=== PATIENT | female | born 1940 | race Caucasian/White ===

== ENCOUNTER 2017-05-20 10:59 | Inpatient (IN) | payer MEDICARE ==
[2017-05-20] VITALS (15 sets, daily range): BP systolic 107–199; BP diastolic 47–94; PULSE 73–124; RESP 16–30; TEMP 98.3–99; O2SAT 96–100
[~2017-05-20] VITALS: Ht 157.5 cm; Wt 64.9 kg
[~2017-05-20 10:59] MED LIST: AMLO5TAB22 PO; BIOT10004 PO; CALTTAB PO; LACTCAP7 PO; LISI-363 PO; METO50CR PO; MULT-65 PO
[2017-05-20 11:25] LABS: AUTOMATED NEUTROPHIL # 4.6 TH/MM3 (1.8-7.7); BASOPHIL # 0.1 TH/MM3 (0-0.2); BASOPHIL % 1.1 % (0.0-2.0); EOSINOPHIL # 0.1 TH/MM3 (0-0.4); HEMATOCRIT 39.9 % (35.0-46.0); HEMOGLOBIN 13.6 GM/DL (11.6-15.3); LYMPH % 35.1 % (9.0-44.0); MEAN CELL VOLUME 92.2 FL (80.0-100.0); MEAN CORPUSCULAR HEMOGLOBIN 31.5 PG (27.0-34.0); MEAN CORPUSCULAR HGB CONC 34.2 % (32.0-36.0); MEAN PLATELET VOLUME 8.7 FL (7.0-11.0); MONO % 8.6 % (0.0-8.0); MONOCYTE # 0.7 TH/MM3 (0-0.9); NEUT % 54.2 % (16.0-70.0); PLATELET COUNT 241 TH/MM3 (150-450); RED BLOOD COUNT 4.33 MIL/MM3 (4.00-5.30); WHITE BLOOD COUNT 8.5 TH/MM3 (4.0-11.0)
[2017-05-20] MEDS ORDERED: MISCELLANEOUS NURSING INFORMATION XX PRN (11:30)
[2017-05-20] MEDS ORDERED: ALTEPLASE DRIP IV ONE (11:30)
[2017-05-20] MEDS ORDERED: SODIUM CHLORIDE 0.9% 50 ML BAG IVF ONE (11:30)
[2017-05-20] MEDS ORDERED: ALTEPLASE BOLUS 9 MG/9 ML SYR IV ONE (11:30)
[2017-05-20 11:40] LABS: CHLORIDE 101 MEQ/L (98-107); SODIUM (NA) 133 MEQ/L (136-145)
[2017-05-20 11:43] LABS: CALCIUM 9.1 MG/DL (8.5-10.1)
[2017-05-20 11:44] LABS: BICARBONATE 23.1 MEQ/L (21.0-32.0); BLOOD UREA NITROGEN 15 MG/DL (7-18); GLUCOSE,RANDOM 97 MG/DL (74-106)
[2017-05-20 11:47] LABS: CREATININE 0.87 MG/DL (0.50-1.00); GLOMERULAR FILTRATION RATE 63 ML/MIN (>89)
[2017-05-20 11:52] LABS: TROPONIN I LESS THAN 0.02 NG/ML (0.02-0.05)
--- NOTE | 2017-05-20 12:01 | PD ---
HPI Chief Complaint: Stroke Alert Time Seen by Provider: 11:06 Travel History International Travel<30 days: No Contact w/Intl Traveler<30days: No Traveled to known affect area: No History of Present Illness HPI Patient is a 77-year-old female with history of hypertension, hyperlipidemia, who presents the emergency room for neuro symptoms. As per patient's , they were getting ready to go the gym, reports that when they arrived at the gym , patient reported that she wanted to go home as she was not feeling well. Patient has been reported that patient was not acting like her normal self, he brought her directly to the emergency room. Patient with no recent histories of any surgeries, no history of CVA in the past. Patient is currently not on any blood thinners or aspirin. Patient is having aphasia at this time, she is unable to provide in HPI. PFSH Past Medical History Arthritis: Yes Asthma: No Anxiety: No Depression: No Heart Rhythm Problems: No Cancer: No Cardiovascular Problems: No High Cholesterol: No Chemotherapy: No Chest Pain: No Congestive Heart Failure: No COPD: No Cerebrovascular Accident: No Diabetes: No Diminished Hearing: No Endocrine: Yes GERD: No Glaucoma: No Genitourinary: No Headaches: Yes Hepatitis: No Hiatal Hernia: Yes Hypertension: Yes Immune Disorder: No Kidney Stones: No Musculoskeletal: Yes (ARTHRITIS, OSTEOPENIA) Neurologic: No Psychiatric: No Reproductive: No Respiratory: No Immunizations Current: Yes Migraines: No Radiation Therapy: No Renal Failure: No Sickle Cell Disease: No Sleep Apnea: No Thyroid Disease: Yes (GOITER REM'D) Ulcer: No Menopausal: Yes : 2 Para: 2 Past Surgical History Abdominal Surgery: Yes (APPY60, LAP ASHLEY) AICD: No Appendectomy: Yes Arteriovenous Shunt: No Body Medical Devices: LEFT KNEE HARDWARE Cardiac Surgery: No Cholecystectomy: Yes Ear Surgery: No Endocrine Surgery: Yes (PARTIAL THYROIDECTOMY) Eye Surgery: No Genitourinary Surgery: No Gynecologic Surgery: No Insulin Pump: No Joint Replacement: No Neurologic Surgery: No Oral Surgery: No Pacemaker: No Other Surgery: Yes (TEMPORAL ARTERY BIOPSY) Social History Alcohol Use: Yes (WINE HS) Tobacco Use: No (QUIT) Substance Use: No Allergies-Medications (Allergen,Severity, Reaction): Coded Allergies: No Known Allergies (Verified Allergy, Unknown, 05/20/17) Reported Meds & Prescriptions Reported Meds & Active Scripts Active Reported Probiotic (Lactobacillus Acidophilus) 10 Billion Cell Cap 1 Cap PO DAILY Glucosamine-Chondroitin 500-400 Mg Tab 1 Tab PO DAILY Multivitamins (Multiple Vitamin) 1 Cap Cap 1 Cap PO HS Metoprolol Succinate ER 24 HR (Metoprolol Succinate) 50 Mg Tab 50 Mg PO HS Lisinopril 20 Mg Tab 20 Mg PO BID Fish Oil 1000 mg ([facility]-3 Fatty Acids) 300 Mg-1,000 Mg Cap 1,000 Mg PO HS Amlodipine (Amlodipine Besylate) 5 Mg Tab 5 Mg PO HS Review of Systems ROS Limitations: Speech Impaired, Other: (aphasic) General / Constitutional: No: Fever Eyes: No: Visual changes HENT: Positive: Headaches Cardiovascular: No: Chest Pain or Discomfort Respiratory: No: Shortness of Breath Gastrointestinal: No: Abdominal Pain Genitourinary: No: Dysuria Musculoskeletal: No: Pain Skin: No Rash Neurologic: Positive: Slurred Speech, Other (Aphasia), No: Weakness, Ataxia Psychiatric: No: Depression Endocrine: No: Polydipsia Hematologic/Lymphatic: No: Easy Bruising Physical Exam Narrative GENERAL: moderate distress SKIN: Focused skin assessment warm/dry. HEAD: Atraumatic. Normocephalic. EYES: Pupils equal and round. No scleral icterus. No injection or drainage. ENT: No nasal bleeding or discharge. Mucous membranes pink and moist. NECK: Trachea midline. No JVD. CARDIOVASCULAR: Regular rate and rhythm. No murmur appreciated. RESPIRATORY: No accessory muscle use. Clear to auscultation. Breath sounds equal bilaterally. GASTROINTESTINAL: Abdomen soft, non-tender, nondistended. Hepatic and splenic margins not palpable. MUSCULOSKELETAL: No obvious deformities. No clubbing. No cyanosis. No edema. NEUROLOGICAL: Awake and alert. . Motor grossly within normal limits. NIH scale 4 - patient with moderate aphasia Data Data Last Documented VS Vital Signs Date Time Temp Pulse Resp B/P (MAP) Pulse Ox O2 Delivery O2 Flow Rate FiO2 05/20/17 12:21 72 171/84 05/20/17 11:30 30 100 Room Air 05/20/17 11:[address] Brain W/O Iv Contrast(Rout) (05/20/17 ) Cath For Specimen (05/20/17 11:08) Prothrombin Time / Inr (Pt) (05/20/17 11:08) Act Partial Throm Time (Ptt) (05/20/17 11:08) Complete Blood Count With Diff (05/20/17 11:08) Basic Metabolic Panel (Bmp) (05/20/17 11:08) Fibrinogen (05/20/17 11:08) Creatine Kinase (Cpk) (05/20/17 11:08) Troponin I (05/20/17 11:08) Ua Includes Microscopic (05/20/17 11:08) Type And Screen (05/20/17 11:08) Chest, Single Ap (05/20/17 ) Electrocardiogram (05/20/17 ) Consult Neurology (05/20/17 11:08) Blood Glucose (05/20/17 11:08) Ecg Monitoring (05/20/17 11:08) Iv Access Insert/Monitor (05/20/17 11:08) NPO (05/20/17 11:08) Oximetry (05/20/17 11:08) Resp Oxygen Nc Stroke (05/20/17 ) Nicardipine Inj (Cardene Inj) (05/20/17 11:15) (Hub Use Only)Inp Phy Cons/Ref (05/20/17 ) ^ Call Pharmacy (05/20/17 11:18) Nih Stroke Scale - Nihss .ONCE (05/20/17 11:18) Urinary Catheter Insert/Apply (05/20/17 11:18) Anticoagulant Alert (05/20/17 11:18) ^ Post Infusion Restrictions (05/20/17 11:18) ^ Medication Alert (05/20/17 11:18) Vital Signs (Adult) .As directed (05/20/17 11:18) Notify Dr: Blood Pressure (05/20/17 11:18) ^ Medication Alert (05/20/17 11:18) Sodium Chloride 0.9% Inj (Ns Inj) (05/20/17 11:30) Misc Nursing Information (05/20/17 11:30) Resp Oxygen Nc Stroke (05/20/17 ) Alteplase Bolus (Activase Bolus) (05/20/17 11:30) Alteplase Drip (Activase Drip) (05/20/17 11:30) Mri Brain W&W/O Contrast (05/20/17 ) Mra Brain W/O Contrast (Cow) (05/20/17 ) Scd Bilateral/Knee High JOSH.QSHIFT (05/20/17 12:00) Lipid Profile (05/20/17 12:00) Us Carotid Arteries Comp Bilat (05/20/17 ) Echo 2d Comp With Doppler (05/20/17 ) Admit Order (Ed Use Only) (05/20/17 12:40) Labs Laboratory Tests Test 05/20/17 11:17 White Blood Count 8.5 TH/MM3 Red Blood Count 4.33 MIL/MM3 Hemoglobin 13.6 GM/DL Hematocrit 39.9 % Mean Corpuscular Volume 92.2 FL Mean Corpuscular Hemoglobin 31.5 PG Mean Corpuscular Hemoglobin Concent 34.2 % Red Cell Distribution Width 12.0 % Platelet Count 241 TH/MM3 Mean Platelet Volume 8.7 FL Neutrophils (%) (Auto) 54.2 % Lymphocytes (%) (Auto) 35.1 % Monocytes (%) (Auto) 8.6 % Eosinophils (%) (Auto) 1.0 % Basophils (%) (Auto) 1.1 % Neutrophils # (Auto) 4.6 TH/MM3 Lymphocytes # (Auto) 3.0 TH/MM3 Monocytes # (Auto) 0.7 TH/MM3 Eosinophils # (Auto) 0.1 TH/MM3 Basophils # (Auto) 0.1 TH/MM3 CBC Comment DIFF FINAL Differential Comment Prothrombin Time 10.0 SEC Prothromb Time International Ratio 1.0 RATIO Activated Partial Thromboplast Time 25.0 SEC Fibrinogen 306 mg/dL Blood Urea Nitrogen 15 MG/DL Creatinine 0.87 MG/DL Random Glucose 97 MG/DL Calcium Level 9.1 MG/DL Sodium Level 133 MEQ/L Potassium Level 4.0 MEQ/L Chloride Level 101 MEQ/L Carbon Dioxide Level 23.1 MEQ/L Anion Gap 9 MEQ/L Estimat Glomerular Filtration Rate 63 ML/MIN Total Creatine Kinase 90 U/L Troponin I LESS THAN 0.02 NG/ML Triglycerides Level 114 MG/DL Cholesterol Level 213 MG/DL LDL Cholesterol 105 MG/DL HDL Cholesterol 85.0 MG/DL Cholesterol/HDL Ratio 2.50 RATIO [facility] Medical Screen Exam Complete: Yes Emergency Medical Condition: Yes Medical Record Reviewed: Yes Differential Diagnosis CVA, ICH Narrative Course 77-year-old female presents to emergency room with her for evaluation of neuro deficits. Patient with NIH scale of 4, patient with moderate aphasia. Onset of symptoms for about 10:30 AM this morning. Stroke alert was called upon arrival to the emergency room. Patient's glucose was 95, initial blood pressure was 199/94. Patient was brought immediately to CT for CT scan of her head. . Repeat blood pressure was 161/73. Case reviewed with Dr. Spicer, discussed with him patient's symptoms - if ct neg for ich, patient can receive TPA. Recommends keeping blood pressure less than 170/ 100. CT of head negative for intracranial hemorrhage. Case reviewed [facility] Dr. Castillo ( radiologist). Repeat bp was 161/73. Patient and daughter at bedside who consented for TPA as patient is unable to consent for TPA due to her aphasia. I did discuss case with patient's other daughter who is also agreeable for treatment with TPA. TPA was administered to patient. Dr. Spicer at bedside evaluating patient, plan to transfer patient to [facility] Case reviewed with Dr. Fu who accepts pt to service at [facility] Repeat neuro exam after TPA given - NIH 1 Patient's blood pressure did increase to 171/84 - cardene gtt started to keep blood pressure under 170/100 Critical Care Narrative Aggregate critical care time was 45 minutes. Time to perform other separately billable procedures was not included in the critical care time. My time did not include minutes spent treating any other patients simultaneously or on activities that did not directly contribute to the patient's treatment. The services I provided to this patient were to treat and/or prevent clinically significant deterioration that could result in: , DECOMPENSATION, DETERIORATION I provided critical care services requiring my management, as noted below: Chart data review, documentation time, medication orders and management, vital sign assessments/reviewing monitor data, ordering and reviewing lab tests, ordering and interpreting/reviewing x-rays and diagnostic studies, care of the patient and discussion of the patient with the admitting physicians. Stroke Alert NIHSS NIH Stroke Scale Result: 4 NIHSS Time Completed: 11:20 Physician Communication Physician Communication Case reviewed with DR. SPICER, neurologist Diagnosis Diagnosis: Primary Impression: CVA (cerebral vascular accident) Qualified Codes: I63.9 - Cerebral infarction, unspecified Admitting Physician Requests: Admit Keena Busby DO May 20, 2017 12:00
--- NOTE | 2017-05-20 12:08 | RADRPT ---
EXAM DATE/TIME: 05/20/2017 11:07 [facility] COMPARISON: No previous studies available for comparison. INDICATIONS : Stroke alert. Aphasia. RADIATION DOSE: 58.91 CTDIvol (mGy) This report was called by to Dr. Busby at 1200 MEDICAL HISTORY : None SURGICAL HISTORY : None. ENCOUNTER: Initial ACUITY: 1 day PAIN SCALE: 0/10 LOCATION: cranial TECHNIQUE: Multiple contiguous axial images were obtained of the head. Using automated exposure control and adj ustment of the mA and/or kV according to patient size, radiation dose was kept as low as reasonably a chievable to obtain optimal diagnostic quality images. DICOM format image data is available electro nically for review and comparison. FINDINGS: CEREBRUM: Moderate diffuse cerebral atrophy. The ventricles are normal for degree of atrophy. No evidence of m idline shift, mass lesion, hemorrhage or acute infarction. No extra-axial fluid collections are seen . POSTERIOR FOSSA: The cerebellum and brainstem are intact. The 4th ventricle is midline. The cerebellopontine angle i s unremarkable. EXTRACRANIAL: The visualized portion of the orbits is intact. SKULL: The calvaria is intact. No evidence of skull fracture. CONCLUSION: 1. No acute intracranial abnormality. Kuldeep Garcia MD on May 20, 2017 at 12:03 Board Certified Radiologist. This report was verified electronically.
--- NOTE | 2017-05-20 12:14 | RADRPT ---
EXAM DATE/TIME: 05/20/2017 11:44 [facility] COMPARISON: No previous studies available for comparison. INDICATIONS : Stroke Alert MEDICAL HISTORY : None. SURGICAL HISTORY : None. ENCOUNTER: Initial ACUITY: 1 day PAIN SCORE: Non-responsive. LOCATION: chest FINDINGS: A single view of the chest demonstrates the lungs to be symmetrically aerated without evidence of mas s, infiltrate or effusion. Mild compensated cardiomegaly. Osseous structures are intact. CONCLUSION: Mild complete cardiomegaly otherwise negative Axel An MD FACR on May 20, 2017 at 12:11 Board Certified Radiologist. This report was verified electronically.
[2017-05-20] MEDS: niCARdipine INJ 25 MG in SODIUM CHLOR 0.9% 250 ML INJ 240 ML IV PRN ×4 (12:21→18:31)
--- NOTE | 2017-05-20 12:31 | MB ---
cc: Theodore Spicer MD, PhD DATE: 05/20/2017 REASON FOR CONSULTATION: Stroke Alert. HISTORY OF PRESENT ILLNESS: Ms. Huynh is a very pleasant 77-year-old right-handed white female who was in her usual state of good health until around 10:30 this morning when she suddenly developed difficulty with language skills, trouble getting words out. She had no focal weakness or numbness. She presented to the [place] [facility] as a Stroke Alert. She was noted to have difficulty with comprehension and trouble with word finding ability. PAST MEDICAL HISTORY: She has a history of hypertension. MEDICATIONS AT HOME: Beta saniya, lisinopril. She does not take any aspirin or any other anticoagulation. NEUROLOGICAL PHYSICAL EXAMINATION: VITAL SIGNS: Blood pressure 199/94, which has subsequently come down to 165/82 on its own. Pulse is 124, regular. She is in normal sinus rhythm, respirations are 30. Temperature is 98 degrees. NEUROLOGIC: Higher Cortical Function: She is alert. She has difficulty with naming ability. She has anomia. Cannot name objects or parts of objects. She makes paraphasic errors in her speech. She has mild comprehension difficulties. Speech is fluent; however. Cranial nerves are normal. Motor Exam: 5/5 strength in all groups of both upper and lower extremities. There is no drift. Fine motor skills are within normal limits. Reflexes are symmetric. Cerebellar testing is normal. IMAGING STUDIES: CT brain: No acute changes present. No evidence of any hemorrhage. LABORATORY DATA: The white count is 8500, hemoglobin 13.6, hematocrit 39.9%, platelet count 241,000. PT 10, INR 1, APTT 25. Sodium is 133, potassium is 4, chloride 101, CO2 23.1, BUN is 15, creatinine 0.87, GFR 63, glucose 97. NIH Stroke Scale equals 4. 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 RECOMMENDATIONS: The patient is a candidate for IV t-PA. This has been initiated already. Continue per t-PA protocol, as well as a post-t-PA order sets, close neuro checks. Avoid anticoagulants or antiplatelets for [address] brain 24 hours after t-PA is started. Also recommend transfer the patient to the main [facility] for further monitoring. NIH Stroke Scale is 4. Would not recommend CTA as I do not feel she is a candidate for large vessel occlusion. Recommend MRI and MRA of the brain, also echocardiogram, carotid ultrasound, lipid panel. Thank you for asking us to see her in consultation. Total time in consult greater than 1 hour. Theodore Spicer MD, PhD MIGUEL/ROSA , 12:00 PM , 12:31 PM
[2017-05-20] MEDS ORDERED: SODIUM CHLOR 0.9% 1000 ML INJ 1,000 ML IV SCH (12:42)
[2017-05-20] MEDS ORDERED: MAGNESIUM HYDROXIDE SUSP 30 ML CUP PO PRN ×2 (12:45→23:30)
[2017-05-20] MEDS ORDERED: MAGNESIUM SULFATE INJ 2 GM in SODIUM CHLORIDE 0.9% INJ 96 ML IV PRN (12:45)
[2017-05-20] MEDS ORDERED: SENNOSIDES 8.6 MG TAB PO PRN ×2 (12:45→23:30)
[2017-05-20] MEDS ORDERED: SODIUM PHOSPHATE INJ 30 MMOL in SODIUM CHLOR 0.9% 250 ML INJ 240 ML IV PRN (12:45)
[2017-05-20] MEDS ORDERED: MAGNESIUM SULFATE INJ 4 GM in SODIUM CHLORIDE 0.9% INJ 92 ML IV PRN (12:45)
[2017-05-20] MEDS ORDERED: LACTULOSE SYRUP 20 GM/30 ML CUP PO PRN ×2 (12:45→23:30)
[2017-05-20] MEDS ORDERED: POTASSIUM PHOSPHATE INJ 30 MMOL in SODIUM CHLOR 0.9% 250 ML INJ 250 ML IV PRN (12:45)
[2017-05-20] MEDS ORDERED: ACETAMINOPHEN/HYDROcodone 325 MG/5 MG TAB PO PRN (12:45)
[2017-05-20] MEDS ORDERED: CHLORHEXIDINE GLUCONATE 2 % 1 PACK (2 CLOTHS) TOP PRN ×2 (12:45→23:30)
[2017-05-20] MEDS ORDERED: MISCELLANEOUS NURSING INFORMATION XX SCH ×2 (12:45→23:30)
[2017-05-20] MEDS ORDERED: POTASSIUM CHLOR 20 MEQ PREMIX 100 ML IV PRN ×2 (12:45)
[2017-05-20] MEDS ORDERED: POTASSIUM PHOSPHATE MONOBASIC 500 MG TAB PO/TUBE PRN (12:45)
[2017-05-20] MEDS ORDERED: POTASSIUM PHOSPHATE MONOBASIC 500 MG TAB PO PRN (12:45)
[2017-05-20] MEDS ORDERED: POTASSIUM CHLOR 40 MEQ PREMIX 100 ML IV PRN ×2 (12:45)
[2017-05-20] MEDS ORDERED: MAGNESIUM OXIDE 400 MG TAB PO PRN (12:45)
[2017-05-20] MEDS ORDERED: POTASSIUM CHLORIDE 25 MEQ EFFERVESCENT TAB PO PRN (12:45)
[2017-05-20] MEDS ORDERED: SODIUM CHLORIDE 0.9% FLUSH 10 ML FLUSH IV FLUSH PRN ×2 (12:45→23:30)
[2017-05-20] MEDS ORDERED: ACETAMINOPHEN 325 MG TAB PO PRN ×2 (12:45→23:30)
[2017-05-20] MEDS ORDERED: BISACODYL 10 MG SUPP RECTAL PRN ×2 (12:45→23:30)
[2017-05-20] MEDS ORDERED: MORPHINE SULFATE 4 MG/ML INJ IV PUSH PRN (13:00)
[2017-05-20] MEDS ORDERED: ENALAPRILAT 1.25 MG/ML VIAL IV PUSH PRN (13:00)
[2017-05-20] MEDS ORDERED: LABETALOL HCL 100 MG/20 ML VIAL IV PUSH PRN (13:00)
[2017-05-20] MEDS ORDERED: DEXTROSE 50% IN WATER 50 ML VIAL(D50) IV PUSH PRN (13:00)
[2017-05-20] MEDS ORDERED: GLUCAGON 1 MG/ML VIAL OTHER PRN (13:00)
[2017-05-20] MEDS ORDERED: niCARdipine INJ 25 MG in SODIUM CHLOR 0.9% 250 ML INJ 240 ML IV PRN (13:00)
[2017-05-20 13:44] LABS: BILIRUBIN, URINE NEG (NEG); BLOOD, URINE NEG (NEG); GLUCOSE,URINE NEG (NEG); KETONE, URINE NEG (NEG); NITRITE,URINE NEG (NEG); PH, URINE 7.5 (5.0-8.5); URINE COLOR YELLOW (YELLW/STRAW); URINE LEUKOCYTE ESTERASE NEG (NEG)
[2017-05-20 13:56] LABS: RBC, URINE 0-3 /hpf (0-3); WBC, URINE 0-2 /hpf (0-5)
[2017-05-20 13:57] LABS: BACTERIA, URINE OCC /hpf
[2017-05-20] MEDS ORDERED: RESP: ALBUTEROL 2.5 MG/3 ML NEB (PRN) INH (14:00)
[2017-05-20] MEDS ORDERED: ONDANSETRON HCL 4 MG/2 ML VIAL IV PUSH PRN ×2 (14:00→23:30)
[2017-05-20] MEDS ORDERED: GADODIAMIDE PF 287 MG/ML 5 ML VIAL (for RAD MRI) IVCONTRAST ONE (14:10)
--- NOTE | 2017-05-20 14:30 | RADRPT ---
EXAM DATE/TIME: 05/20/2017 12:45 [facility] COMPARISON: No previous studies available for comparison. INDICATIONS : Generalized weakness with aphasia. MEDICAL HISTORY : Hypertension. Hypercholesterolemia. Arthritis. Osteopenia. Hiatal Hernia. Headaches. Goiter. SURGICAL HISTORY : Appendectomy. Cholecystectomy. Thyroidectomy. ENCOUNTER: Initial ACUITY: 1 day PAIN SCORE: 0/10 LOCATION: Bilateral neck PEAK SYSTOLIC VELOCITIES (cm/sec): ICA/CCA RATIO: Right: 1.1 Left: 0.7 ICA: Right: 108 Left: 104 CCA: Right: 100 Left: 145 ECA: Right: 138 Left: 129 VERTEBRAL: Right: 64 antegrade Left: 72 antegrade Elevated flow velocities and ICA/CCA ratios have been found to correlate with increased degrees of vessel stenosis, calculated as percentage of diameter relative to a normal segment of distal ICA/CCA FINDINGS: RIGHT CAROTID: No significant stenosis is visualized. The waveforms are within normal limits. LEFT CAROTID: No significant stenosis is visualized. The waveforms are within normal limits. VERTEBRAL ARTERIES: Antegrade flow is seen in both vertebral arteries. MISCELLANEOUS: None. CONCLUSION: 1. Mild carotid plaque without significant flow-limiting stenosis. 2. Antegrade vertebral artery flow bilaterally. Kuldeep Garcia MD on May 20, 2017 at 14:26 Board Certified Radiologist. This report was verified electronically.
[2017-05-20] MEDS ORDERED: LISI-515 PO (14:39)
[2017-05-20] MEDS ORDERED: FISH100020 PO (14:39)
[2017-05-20] MEDS ORDERED: LACTCAP8 PO (14:39)
[2017-05-20] MEDS ORDERED: METO1TAB9 PO (14:39)
[2017-05-20] MEDS ORDERED: GLUC500T4 PO (14:39)
[2017-05-20] MEDS ORDERED: AMLO5TAB2 PO (14:39)
[2017-05-20] MEDS ORDERED: MULTCAP3 PO (14:39)
[2017-05-20] MEDS ORDERED: ACETAMINOPHEN 650 MG SUPP RECTAL ONE (14:45)
[2017-05-20 14:46] LABS: CHOLESTEROL/ HDL RATIO 2.5 RATIO
--- NOTE | 2017-05-20 15:11 | RADRPT ---
EXAM DATE/TIME: 05/20/2017 13:59 [facility] COMPARISON: MRI BRAIN W & W/O CONTRAST, May 20, 2017, 13:59. INDICATIONS : CVA. MEDICAL HISTORY : Hypertension. SURGICAL HISTORY : Appendectomy. Cholecystectomy. Thyroidectomy. Knee sx. ENCOUNTER: Initial ACUITY: 1 day PAIN SCORE: 3/10 LOCATION: Bilateral cranial Please note a normal MRA of the brain does not entirely exclude the possibility of a small aneurysm, nor the possibility of distal intracranial vessel disease. TECHNIQUE: 3D time of flight MRA was performed. Source images, multiplanar STS MIP, and 3D volume MIP reconstru ctions were reviewed. FINDINGS: Anterior circulation: Distal intracranial internal carotid arteries are patent with flow extending to the middle and anteri or cerebral arteries. There is no evidence for aneurysm, vessel truncation or stenosis, and no eviden ce for vascular malformation. Posterior circulation: Symmetric distal vertebral arteries with flow extending to basilar artery. There is no evidence for aneurysm, vessel truncation or stenosis, and no evidence for vascular malformation. CONCLUSION: 1. Unremarkable MRA examination of the [place]. Specifically, no evidence for significant in tracranial stenosis or large vessel occlusion. Kuldeep Garcia MD on May 20, 2017 at 15:07 Board Certified Radiologist. This report was verified electronically.
--- NOTE | 2017-05-20 16:03 | RADRPT ---
EXAM DATE/TIME: 05/20/2017 13:59 [facility] COMPARISON: No previous studies available for comparison. INDICATIONS : CVA. Difficulty with speech. CONTRAST: 13 cc Omniscan (gadodiamide) IV MEDICAL HISTORY : Hypertension. SURGICAL HISTORY : Appendectomy. Cholecystectomy. Thyroidectomy. Knee sx. ENCOUNTER: Initial ACUITY: 1 day PAIN SCORE: 4/10 LOCATION: Bilateral cranial TECHNIQUE: Multiplanar, multisequence MRI of the brain was performed both prior to and following the administrat ion of paramagnetic contrast. FINDINGS: Moderate periventricular white matter changes are evident. There are no extra-axial fluid collection s appreciated. There is no parenchymal hemorrhage, mass effect or acute infarction. There is no restricted diffusio n evident. Midline structures are intact Posterior fossa is unremarkable Fourth ventricle is midline. Seventh and eighth cranial nerves are normal. There is no abnormal contrast enhancement. CONCLUSION: Minimal nonspecific periventricular matter changes. No restricted diffusion to suggest acute infarct No parenchymal hemorrhage. Axel An MD FACR on May 20, 2017 at 15:58 Board Certified Radiologist. This report was verified electronically.
--- NOTE | 2017-05-20 16:13 | EKG ---
Date Performed: 05/20/2017 Time Performed: 11:02:03 PTAGE: 77 years EKG: Sinus rhythm Nonspecific ST and T wave abnormalities INTERPRETATION BASED ON A DEFAULT AGE OF 40 YEARS Compared t o prior electrocardiogram, Nonspecific ST and T wave abnormalities are now present NO PREVIOUS TRACING DOCTOR: Reza Ware Interpretating Date/Time 05/20/2017 16:12:56
[2017-05-20] MEDS: RESP: ALBUTEROL 2.5 MG/IPRATROPIUM 0.5 MG NEB (SCH) INH ×2 (16:27→21:01)
[2017-05-20] MEDS: INSULIN ASPART SUPPLEMENTAL SCALE SQ SCH ×2 (17:00→21:00)
[2017-05-20] MEDS ORDERED: SODIUM CHLORIDE 0.9% FLUSH 10 ML FLUSH IV FLUSH SCH (21:00)
[2017-05-20] MEDS: ATORVASTATIN 10 MG TAB PO SCH (21:00)
[2017-05-20] MEDS ORDERED: DOCUSATE SODIUM 50 MG/SENNA 8.6 MG TAB PO SCH (21:00)
--- NOTE | 2017-05-20 23:14 | HHI.HP ---
[facility] Service Critical Care Medicine Primary Care Physician Bety Orantes MD Admission Diagnosis CVA Diagnosis: Travel History International Travel<30 Days: No Contact w/Intl Traveler <30 Da: No Traveled to Known Affected Are: No History of Present Illness 77-year-old female with history of hypertension, hyperlipidemia, presents as a stroke alert. As per patient's , they were getting ready to go the gym, reports that when they arrived at the gym, patient reported that she wanted to go home as she was not feeling well. Patient has been reported that patient was not acting like her normal self, he brought her directly to the emergency room as when she suddenly developed difficulty with language skills, trouble getting words out. She had no focal weakness or numbness. Patient with no recent histories of any surgeries, no history of CVA in the past. Patient is currently not on any blood thinners or aspirin. She was having aphasia in the emergency department and decision was made to administer TPA infusion.. Review of Systems Constitutional: DENIES: Diaphoretic episodes, Fatigue, Fever, Weight gain, Weight loss, Chills, Dizziness, Change in appetite, Night Sweats Endocrine: DENIES: Abnorml menstrual pattern, Heat/cold intolerance, Polydipsia , Polyuria, Polyphagia Eyes: DENIES: Blurred vision, Diplopia, Eye inflammation, Eye pain, Vision loss , Photosensitivity, Double Vision Respiratory: DENIES: Apneas, Cough, Snoring, Wheezing, Hemoptysis, Sputum production, Shortness of breath Cardiovascular: DENIES: Chest pain, Palpitations, Syncope, Dyspnea on Exertion , PND, Lower Extremity Edema, Orthopnea, Claudication Gastrointestinal: DENIES: Abdominal pain, Black stools, Bloody stools, Constipation, Diarrhea, Nausea, Vomiting, Difficulty Swallowing, Anorexia Genitourinary: DENIES: Abnormal vaginal bleeding, Dysmenorrhea, Dyspareunia, Sexual dysfunction, Urinary frequency, Urinary incontinence, Urgency, Hematuria , Dysuria, Nocturia, Vaginal discharge Musculoskeletal: DENIES: Joint pain, Muscle aches, Stiffness, Joint Swelling, Back pain, Neck pain Integumentary: DENIES: Abnormal pigmentation, Pruritus, Rash, Nail changes, Breast masses, Breast skin changes, Nipple discharge Hematologic/lymphatic: DENIES: Bruising, Lymphadenopathy Immunologic/allergic: DENIES: Eczema, Urticaria Neurologic: COMPLAINS OF: Abnormal gait, Speech Problems, DENIES: Headache, Localized weakness, Paresthesias, Seizures, Tremor, Poor Balance Psychiatric: DENIES: Anxiety, Confusion, Mood changes, Depression, Hallucinations, Agitation, Suicidal Ideation, Homicidal Ideation, Delusions Past Family Social History Allergies: Coded Allergies: No Known Allergies (Verified Allergy, Unknown, 05/20/17) Past Medical History Osteoarthritis of the neck Hyperlipidemia. Hypertension. Temporal arteritis. Past Surgical History Appendectomy. Cholecystectomy. Thyroid surgery. Reported Medications Reported Meds & Active Scripts Active Reported Probiotic (Lactobacillus Acidophilus) 10 Billion Cell Cap 1 Cap PO DAILY Glucosamine-Chondroitin 500-400 Mg Tab 1 Tab PO DAILY Multivitamins (Multiple Vitamin) 1 Cap Cap 1 Cap PO HS Metoprolol Succinate ER 24 HR (Metoprolol Succinate) 50 Mg Tab 50 Mg PO HS Lisinopril 20 Mg Tab 20 Mg PO BID Fish Oil 1000 mg ([place]-3 Fatty Acids) 300 Mg-1,000 Mg Cap 1,000 Mg PO HS Amlodipine (Amlodipine Besylate) 5 Mg Tab 5 Mg PO HS Active Ordered Medications Current Medications Nicardipine HCl 25 mg/Sodium Chloride 250 ml @ 50 mls/hr TITRATE PRN IV Blood pressure management Last administered on 05/20/17at 15:29; Start 05/20/17 at 11:15 ; Stop 05/20/17 at 12:56; Status DC Sodium Chloride (NS Inj) 30 ml ONCE ONCE IVF Last administered on 05/20/17at 12: 50; Start 05/20/17 at 11:30; Stop 05/20/17 at 11:31; Status DC Miscellaneous Information No Heparin, Warfarin, Aspir... UNSCH PRN XX SEE DOSE INSTRUCTIONS; Start 05/20/17 at 11:30; Stop 05/21/17 at 11:29 Alteplase, Recombinant (Activase Bolus) 6.1 mg ONCE ONCE IV Last administered on 05/20/17at 11:36; Start 05/20/17 at 11:30; Stop 05/20/17 at 11:34; Status DC Alteplase, Recombinant 54.5 mg/Syringe / Bag 54.5 ml @ 54.5 mls/hr ONCE ONCE IV Last administered on 05/20/17at 11:50; Start 05/20/17 at 11:30; Stop 05/20/17 at 12:29; Status DC Sodium Chloride 1,000 ml @ 84 mls/hr [id number] IV Last administered on 05/20/17at 14:49; Start 05/20/17 at 12:42; Stop 05/20/17 at 23:45; Status DC Sodium Chloride (NS Flush) 2 ml UNSCH PRN IV FLUSH FLUSH AFTER USING IV ACCESS ; Start 05/20/17 at 12:45; Stop 05/21/17 at 00:03; Status DC Sodium Chloride (NS Flush) 2 ml BID IV FLUSH Last administered on 05/20/17at 21: 34; Start 05/20/17 at 21:00; Stop 05/21/17 at 00:03; Status DC Acetaminophen (Tylenol) 650 mg Q6H PRN PO fever; Start 05/20/17 at 12:45; Stop 05/20/17 at 23:57; Status DC Acetaminophen/ Hydrocodone Bitart ([place] 5-325 Mg) 1 tab Q4H PRN PO PAIN SCALE 1 TO 5; Start 05/20/17 at 12:45 Morphine Sulfate (Morphine Inj) 2 mg Q2H PRN IV PUSH PAIN SCALE 6 TO 10; Start 05/20/17 at 13:00 Pantoprazole Sodium (Protonix) 40 mg DAILY PO ; Start 05/21/17 at 09:00 Ondansetron HCl (Zofran Inj) 4 mg Q6H PRN IV PUSH NAUSEA OR VOMITING; Start 05/20/17 at 14:00; Stop 05/21/17 at 00:07; Status DC Albuterol/ Ipratropium (Duoneb Neb) 1 ampule Q6HR NEB INH Last administered on 05/20/17at 21:01; Start 05/20/17 at 16:00 Albuterol Sulfate (Albuterol Neb) 2.5 mg Q2HR NEB PRN INH SOB/WHEEZING; Start 05/20/17 at 14:00; Stop 05/21/17 at 00:09; Status DC Miscellaneous Information 1 Q361D XX ; Start 05/20/17 at 12:45; Stop 05/21/17 at 00:01; Status DC Chlorhexidine Gluconate (Chlorhexidine 2% Cloth) 3 pack Taper DAILY@04 TOP ; Start 05/21/17 at 04:00; Stop 05/21/17 at 04:00; Status DC Chlorhexidine Gluconate (Chlorhexidine 2% Cloth) 3 pack UNSCH PRN TOP HYGIENIC CARE; Start 05/20/17 at 12:45; Stop 05/21/17 at 00:01; Status DC Senna/Docusate Sodium (Norma-Colace) 1 tab BID PO ; Start 05/20/17 at 21:00; Stop 05/21/17 at 00:04; Status DC Magnesium Hydroxide (Milk Of Magnesia Liq) 30 ml Q12H PRN PO Mild constipation ; Start 05/20/17 at 12:45; Stop 05/21/17 at 00:06; Status DC Sennosides (Senokot) 17.2 mg Q12H PRN PO Moderate constipation; Start 05/20/17 at 12:45; Stop 05/21/17 at 00:07; Status DC Bisacodyl (Dulcolax Supp) 10 mg DAILY PRN RECTAL SEVERE CONSITIPATION; Start at 12:45; Stop 05/21/17 at 00:00; Status DC Lactulose (Lactulose Liq) 30 ml DAILY PRN PO SEVERE CONSITIPATION; Start at 12:45; Status Cancel Potassium Chloride 100 ml @ 50 mls/hr Q2H PRN IV For Potassium 2.8 - 3.2 mEq/L ; Start 05/20/17 at 12:45 Potassium Chloride 100 ml @ 50 mls/hr Q2H PRN IV For Potassium 2.8 - 3.2 mEq/L ; Start 05/20/17 at 12:45 Potassium Bicarb/ Potassium Chloride (K-Lyte Cl Eff) 50 meq UNSCH PRN PO For Potassium 3.3 - 3.5 mEq/L; Start 05/20/17 at 12:45 Potassium Chloride 100 ml @ 25 mls/hr UNSCH PRN IV For Potassium 3.3 - 3.5 mEq /L; Start 05/20/17 at 12:45 Potassium Chloride 100 ml @ 50 mls/hr Q2H PRN IV For Potassium 3.3 - 3.5 mEq/L ; Start 05/20/17 at 12:45 Magnesium Sulfate 4 gm/Sodium Chloride 100 ml @ 50 mls/hr UNSCH PRN IV For Magnesium 0.9 - 1.1 mg/dL; Start 05/20/17 at 12:45 Magnesium Oxide (Mag-Ox) 800 mg UNSCH PRN PO For Magnesium 1.2 - 1.6 mg/dL; Start 05/20/17 at 12:45 Magnesium Sulfate 2 gm/Sodium Chloride 100 ml @ 50 mls/hr UNSCH PRN IV For Magnesium 1.2 - 1.6 mg/dL; Start 05/20/17 at 12:45 Potassium Phosphate (K-Phos) 2,000 mg Q4H PRN PO For Phosphorus < 2.5 mg/dL; Start 05/20/17 at 12:45 Sodium Phosphate 30 mmol/Sodium Chloride 250 ml @ 42 mls/hr UNSCH PRN IV For Phosphorus < 2.5 mg/dL; Start 05/20/17 at 12:45 Potassium Phosphate (K-Phos) 2,000 mg UNSCH PRN PO/TUBE SEE LABEL COMMENTS; Start 05/20/17 at 12:45 Potassium Phosphate 30 mmol/ Sodium Chloride 260 ml @ 42 mls/hr UNSCH PRN IV SEE LABEL COMMENTS; Start 05/20/17 at 12:45 Labetalol HCl (Trandate Inj) 10 mg Q1HR PRN IV PUSH SBP>180, DBP>105, HR>65; Start 05/20/17 at 13:00 Nicardipine HCl 25 mg/Sodium Chloride 250 ml @ 50 mls/hr TITRATE PRN IV Maintain BP goal; Start 05/20/17 at 13:00; Stop 05/20/17 at 13:00; Status DC Atorvastatin Calcium (Lipitor) 10 mg HS PO ; Start 05/20/17 at 21:00 Insulin Aspart (NovoLOG SUPPLEMENTAL SCALE) 1 ACHS SQ ; Start 05/20/17 at 17:00 Dextrose (D50w (Vial) Inj) 50 ml UNSCH PRN IV PUSH HYPOGLYCEMIA-SEE COMMENTS; Start 05/20/17 at 13:00 Glucagon (Glucagon Inj) 1 mg UNSCH PRN OTHER HYPOGLYCEMIA-SEE COMMENTS; Start 05/20/17 at 13:00 Enalaprilat (Vasotec Inj) 1.25 mg Q6H PRN IV PUSH SBP> OR = 180, DBP> OR = 105 ; Start 05/20/17 at 13:00 Nicardipine HCl 25 mg/Sodium Chloride 250 ml @ 50 mls/hr TITRATE PRN IV Blood pressure management Last administered on 05/20/17at 18:31; Start 05/20/17 at 13:00 Gadodiamide (Omniscan Pf Inj) 13 ml STK-MED ONCE IVCONTRAST Last administered on 05/20/17at 14:13; Start 05/20/17 at 14:10; Stop 05/20/17 at 14:11; Status DC Acetaminophen (Tylenol Supp) 650 mg ONCE ONCE RECTAL Last administered on at 14:47; Start 05/20/17 at 14:45; Stop 05/20/17 at 14:46; Status DC Metoprolol Succinate (Toprol Xl) 50 mg HS PO ; Start 05/21/17 at 21:00 Non-Formulary Medication 1 tab DAILY PO ; Start 05/21/17 at 09:00; Status Cancel Multivitamins (Theragran) 1 tab HS PO ; Start 05/21/17 at 21:00 Non-Formulary Medication 1,000 mg HS PO ; Start 05/21/17 at 21:00; Status Cancel Sodium Chloride 1,000 ml @ 84 mls/hr [id number] IV Last administered on 05/20/17at 23:16; Start 05/20/17 at 23:16 Sodium Chloride (NS Flush) 2 ml UNSCH PRN IV FLUSH FLUSH AFTER USING IV ACCESS ; Start 05/20/17 at 23:30 Sodium Chloride (NS Flush) 2 ml BID IV FLUSH ; Start 05/21/17 at 09:00 Acetaminophen (Tylenol) 650 mg Q6H PRN PO FEVER >101F Last administered on at 23:30; Start 05/20/17 at 23:30 Famotidine (Pepcid Inj) 20 mg Q12HR IV PUSH ; Start 05/21/17 at 09:00 Ondansetron HCl (Zofran Inj) 4 mg Q6H PRN IV PUSH NAUSEA OR VOMITING; Start 05/20/17 at 23:30 Albuterol/ Ipratropium (Duoneb Neb) 1 ampule Q2HR NEB PRN INH WHEEZING; Start 05/20/17 at 23:30 Heparin Sodium (Porcine) (Heparin Inj) 5,000 units Q8H SQ ; Start 05/22/17 at 00 :00 Miscellaneous Information 1 Q361D XX ; Start 05/20/17 at 23:30 Chlorhexidine Gluconate (Chlorhexidine 2% Cloth) 3 pack Taper DAILY@04 TOP ; Start 05/21/17 at 04:00; Stop 05/17/18 at 03:59 Chlorhexidine Gluconate (Chlorhexidine 2% Cloth) 3 pack UNSCH PRN TOP HYGIENIC CARE; Start 05/20/17 at 23:30 Senna/Docusate Sodium (Norma-Colace) 1 tab BID PO ; Start 05/21/17 at 09:00 Magnesium Hydroxide (Milk Of Magnesia Liq) 30 ml Q12H PRN PO Mild constipation ; Start 05/20/17 at 23:30 Sennosides (Senokot) 17.2 mg Q12H PRN PO Moderate constipation; Start 05/20/17 at 23:30 Bisacodyl (Dulcolax Supp) 10 mg DAILY PRN RECTAL SEVERE CONSITIPATION; Start at 23:30 Lactulose (Lactulose Liq) 30 ml DAILY PRN PO SEVERE CONSITIPATION; Start at 23:30 Family History No family history significant of early coronary artery disease or stroke Social History Denies tobacco, alcohol, or illicit drug abuse Physical Exam Vital Signs Vital Signs Date Time Temp Pulse Resp B/P (MAP) Pulse Ox O2 Delivery O2 Flow Rate FiO2 05/20/17 21:12 05/20/17 21:00 96 21 05/20/17 19:56 80 16 114/57 (76) 97 Room Air 05/20/17 19:19 79 16 115/47 (69) 97 Room Air 05/20/17 19:07 81 18 107/57 (74) 97 Room Air 05/20/17 18:50 86 16 131/61 (84) 96 Room Air 05/20/17 18:31 83 133/60 05/20/17 17:50 86 16 118/57 (77) 98 Room Air 05/20/17 16:50 76 16 119/52 (74) 98 Room Air 05/20/17 16:27 97 21 05/20/17 16:00 16 05/20/17 15:49 80 16 117/56 (76) 98 Room Air 05/20/17 15:32 88 16 130/59 (82) 99 Room Air 05/20/17 15:29 81 142/56 05/20/17 15:29 83 142/56 4/9/18 15:00 98 21 05/20/17 14:30 86 16 119/47 (71) 98 Room Air 05/20/17 12:44 75 154/69 05/20/17 12:21 72 171/84 05/20/17 11:30 30 100 Room Air 05/20/17 11:14 124 30 100 Room Air 05/20/17 11:00 98.3 124 30 199/94 (129) 96 Physical Exam GENERAL: Well-nourished, well-developed patient. SKIN: Warm and dry. HEAD: Normocephalic. EYES: No scleral icterus. No injection or drainage. NECK: Supple, trachea midline. No JVD or lymphadenopathy. CARDIOVASCULAR: Regular rate and rhythm without murmurs, gallops, or rubs. RESPIRATORY: Breath sounds equal bilaterally. No accessory muscle use. GASTROINTESTINAL: Abdomen soft, non-tender, nondistended. MUSCULOSKELETAL: No cyanosis, or edema. BACK: Nontender without obvious deformity. NEURO EXAM: GCS: 15 Mental Status: The patient is alert and oriented to person, place, and time with normal speech. Cranial Nerves: Visual acuity intact bilaterally. Visual peguero normal in all quadrants. Pupils are round, reactive to light. Extraocular movements are intact without ptosis. Hearing is normal bilaterally. Voice is normal. Tongue protrudes midline and moves symmetrically. Reflexes: Biceps, patellar, and Achilles are 2/4 bilaterally. No clonus. Sensation: Sensation is intact bilaterally to pain and light touch. Two-point discrimination is intact. Motor: Good muscle tone. Strength is 5/5 bilaterally. Cerebellar: [id number] and [id number] test normal bilaterally. Laboratory Laboratory Tests Test 05/20/17 11:17 05/20/17 13:26 White Blood Count 8.5 Red Blood Count 4.33 Hemoglobin 13.6 Hematocrit 39.9 Mean Corpuscular Volume 92.2 Mean Corpuscular Hemoglobin 31.5 Mean Corpuscular Hemoglobin Concent 34.2 Red Cell Distribution Width 12.0 Platelet Count 241 Mean Platelet Volume 8.7 Neutrophils (%) (Auto) 54.2 Lymphocytes (%) (Auto) 35.1 Monocytes (%) (Auto) 8.6 Eosinophils (%) (Auto) 1.0 Basophils (%) (Auto) 1.1 Neutrophils # (Auto) 4.6 Lymphocytes # (Auto) 3.0 Monocytes # (Auto) 0.7 Eosinophils # (Auto) 0.1 Basophils # (Auto) 0.1 CBC Comment DIFF FINAL Differential Comment Prothrombin Time 10.0 Prothromb Time International Ratio 1.0 Activated Partial Thromboplast Time 25.0 Fibrinogen 306 Blood Urea Nitrogen 15 Creatinine 0.87 Random Glucose 97 Calcium Level 9.1 Sodium Level 133 Potassium Level 4.0 Chloride Level 101 Carbon Dioxide Level 23.1 Anion Gap 9 Estimat Glomerular Filtration Rate 63 Total Creatine Kinase 90 Troponin I LESS THAN 0.02 Triglycerides Level 114 Cholesterol Level 213 LDL Cholesterol 105 HDL Cholesterol 85.0 Cholesterol/HDL Ratio 2.50 Urine Color YELLOW Urine Turbidity CLEAR Urine pH 7.5 Urine Specific [place] 1.015 Urine Protein NEG Urine Glucose (UA) NEG Urine Ketones NEG Urine Occult Blood NEG Urine Nitrite NEG Urine Bilirubin NEG Urine Urobilinogen 0.2 Urine Leukocyte Esterase NEG Urine RBC 0-3 Urine WBC 0-2 Urine Bacteria OCC Urine Oval Fat Bodies Result Diagram: 05/20/17 1117 05/20/17 1117 Caprini VTE Risk Assessment Caprini VTE Risk Assessment: Mod/High Risk (score >= 2) Caprini Risk Assessment Model Point Value = 1 Point Value = 2 Point Value = 3 Point Value = 5 Age 41-60 Minor surgery BMI > 25 kg/m2 Swollen legs Varicose veins or History of unexplained or recurrent spontaneous Oral contraceptives or hormone replacement Sepsis (< 1 month) Serious lung disease, including pneumonia (< 1 month) Abnormal pulmonary function Acute myocardial infarction Congestive heart failure (< 1 month) History of inflammatory bowel disease Medical patient at bed rest Age 61-74 Arthroscopic surgery Major open surgery (> 45 min) Laparoscopic surgery (> 45 min) Malignancy Confined to bed (> 72 hours) Immobilizing plaster cast Central venous access Age >= 75 History of VTE Family history of VTE Factor V Leiden Prothrombin [id number] Lupus anticoagulant Anticardiolipin antibodies Elevated serum homocysteine Heparin-induced thrombocytopenia Other congenital or acquired thrombophilia Stroke (< 1 month) Elective arthroplasty Hip, pelvis, or leg fracture Acute spinal cord injury (< 1 month) Prophylaxis Regimen Total Risk Factor Score Risk Level Prophylaxis Regimen 0-1 Low Early ambulation 2 Moderate Order ONE of the following: *Sequential Compression Device (SCD) *Heparin 5000 units SQ BID 3-4 Higher Order ONE of the following medications: *Heparin 5000 units SQ TID *Enoxaparin/Lovenox 40 mg SQ daily (WT < 150 kg, CrCl > 30 mL/min) *Enoxaparin/Lovenox 30 mg SQ daily (WT < 150 kg, CrCl > 10-29 mL/min) *Enoxaparin/Lovenox 30 mg SQ BID (WT < 150 kg, CrCl > 30 mL/min) AND/OR *Sequential Compression Device (SCD) 5 or more Highest Order ONE of the following medications: *Heparin 5000 units SQ TID (Preferred with Epidurals) *Enoxaparin/Lovenox 40 mg SQ daily (WT < 150 kg, CrCl > 30 mL/min) *Enoxaparin/Lovenox 30 mg SQ daily (WT < 150 kg, CrCl > 10-29 mL/min) *Enoxaparin/Lovenox 30 mg SQ BID (WT < 150 kg, CrCl > 30 mL/min) AND *Sequential Compression Device (SCD) Assessment and Plan Assessment and Plan Acute CVA -Status post TPA administration -Admits to [facility] -Neuro checks per unit protocol -Aspirin, statins, blood pressure control -Telemetry -2D echo -Further workup per neurologist -PT and OT as tolerated -Swallow eval prior to p.o. Hypertension -Continue metoprolol -Hold Norvasc and lisinopril to allow permissive hypertension -Resume home meds when indicated -SBP goal less than 180 Dyslipidemia -Atorvastatin DVT GI prophylaxis -Evelio's and SCDs -Subcu heparin 24 hour post TPA administration -Pepcid Critical Care: The total critical care time was 35 minutes. Time to perform other separately billable procedures was not included in the critical care time. Rey Machuca MD May 20, 2017 11:14 pm
[2017-05-20] MEDS: SODIUM CHLOR 0.9% 1000 ML INJ 1,000 ML IV SCH (23:16)
[2017-05-20] MEDS ORDERED: RESP: ALBUTEROL 2.5 MG/IPRATROPIUM 0.5 MG NEB (PRN) INH (23:30)
[2017-05-21] VITALS (15 sets, daily range): BP systolic 98–153; BP diastolic 52–88; PULSE 58–90; RESP 14–30; TEMP 98.1–99; O2SAT 94–100
[2017-05-21] MEDS: RESP: ALBUTEROL 2.5 MG/IPRATROPIUM 0.5 MG NEB (SCH) INH ×4 (03:28→21:44)
[2017-05-21] MEDS ORDERED: CHLORHEXIDINE GLUCONATE 2 % 1 PACK (2 CLOTHS) TOP SCH (04:00)
[2017-05-21] MEDS: CHLORHEXIDINE GLUCONATE 2 % 1 PACK (2 CLOTHS) TOP SCH (04:00)
[2017-05-21] MEDS: INSULIN ASPART SUPPLEMENTAL SCALE SQ SCH ×4 (08:00→21:00)
--- NOTE | 2017-05-21 08:41 | HHI.PR ---
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 Plan CT 24 hr post TPA--if negative, start aspirin 325 mg daily 24 hr post tpa follow up echo continue monitor telemetry to r/o afib ok to start her home antihypertensive medications Diagnosis/Plan: Subjective Subjective Comments No acute events reported speech improved. feels back to normal Active Medications Current Medications Medications (Trade) Dose Ordered Sig/Jennifer Route Start Time Stop Time Status Last Admin Miscellaneous Information No Heparin, Warfarin, Aspir... UNSCH PRN XX 05/20/17 11:30 05/21/17 11:29 ([place] 5-325 Mg) 1 tab Q4H PRN PO 05/20/17 12:45 (Morphine Inj) 2 mg Q2H PRN IV PUSH 05/20/17 13:00 (Protonix) 40 mg DAILY PO 05/21/17 09:00 (Duoneb Neb) 1 ampule Q6HR NEB INH 05/20/17 16:00 05/20/17 21:01 Potassium Chloride 100 ml @ 50 mls/hr Q2H PRN IV 05/20/17 12:45 Potassium Chloride 100 ml @ 50 mls/hr Q2H PRN IV 05/20/17 12:45 (K-Lyte Cl Eff) 50 meq UNSCH PRN PO 05/20/17 12:45 Potassium Chloride 100 ml @ 25 mls/hr UNSCH PRN IV 05/20/17 12:45 Potassium Chloride 100 ml @ 50 mls/hr Q2H PRN IV 05/20/17 12:45 Magnesium Sulfate 4 gm/Sodium Chloride 100 ml @ 50 mls/hr UNSCH PRN IV 05/20/17 12:45 (Mag-Ox) 800 mg UNSCH PRN PO 05/20/17 12:45 Magnesium Sulfate 2 gm/Sodium Chloride 100 ml @ 50 mls/hr UNSCH PRN IV 05/20/17 12:45 (K-Phos) 2,000 mg Q4H PRN PO 05/20/17 12:45 Sodium Phosphate 30 mmol/Sodium Chloride 250 ml @ 42 mls/hr UNSCH PRN IV 05/20/17 12:45 (K-Phos) 2,000 mg UNSCH PRN PO/TUBE 05/20/17 12:45 Potassium Phosphate 30 mmol/ Sodium Chloride 260 ml @ 42 mls/hr UNSCH PRN IV 05/20/17 12:45 (Trandate Inj) 10 mg Q1HR PRN IV PUSH 05/20/17 13:00 (Lipitor) 10 mg HS PO 05/20/17 21:00 (NovoLOG SUPPLEMENTAL SCALE) 1 ACHS SQ 05/20/17 17:00 (D50w (Vial) Inj) 50 ml UNSCH PRN IV PUSH 05/20/17 13:00 (Glucagon Inj) 1 mg UNSCH PRN OTHER 05/20/17 13:00 (Vasotec Inj) 1.25 mg Q6H PRN IV PUSH 05/20/17 13:00 Nicardipine HCl 25 mg/Sodium Chloride 250 ml @ 50 mls/hr TITRATE PRN IV 05/20/17 13:00 05/20/17 18:31 (Toprol Xl) 50 mg HS PO 05/21/17 21:00 (Theragran) 1 tab HS PO 05/21/17 21:00 Sodium Chloride 1,000 ml @ 84 mls/hr [id number] IV 05/20/17 23:16 05/20/17 23:16 (NS Flush) 2 ml UNSCH PRN IV FLUSH 05/20/17 23:30 (NS Flush) 2 ml BID IV FLUSH 05/21/17 09:00 (Tylenol) 650 mg Q6H PRN PO 05/20/17 23:30 05/20/17 23:30 (Pepcid Inj) 20 mg Q12HR IV PUSH 05/21/17 09:00 (Zofran Inj) 4 mg Q6H PRN IV PUSH 05/20/17 23:30 (Duoneb Neb) 1 ampule Q2HR NEB PRN INH 05/20/17 23:30 (Heparin Inj) 5,000 units Q8H SQ 05/22/17 00:00 Miscellaneous Information 1 Q361D XX 05/20/17 23:30 (Chlorhexidine 2% Cloth) 3 pack Taper DAILY@04 TOP 05/21/17 04:00 05/17/18 03:59 (Chlorhexidine 2% Cloth) 3 pack UNSCH PRN TOP 05/20/17 23:30 (Norma-Colace) 1 tab BID PO 05/21/17 09:00 (Milk Of Magnesia Liq) 30 ml Q12H PRN PO 05/20/17 23:30 (Senokot) 17.2 mg Q12H PRN PO 05/20/17 23:30 (Dulcolax Supp) 10 mg DAILY PRN RECTAL 05/20/17 23:30 (Lactulose Liq) 30 ml DAILY PRN PO 05/20/17 23:30 Allergies Allergies Coded Allergies No Known Allergies (Verified Allergy, Unknown, 05/20/17) Exam I&O / VS Vital Signs Date Time Temp Pulse Resp B/P (MAP) Pulse Ox O2 Delivery O2 Flow Rate FiO2 05/21/17 06:00 62 05/21/17 04:00 68 05/21/17 04:00 98.7 65 15 112/88 (96) 99 05/21/17 03:36 100 Nasal Cannula 2.00 05/21/17 02:00 64 05/21/17 00:00 99.0 62 18 98/52 (67) 94 05/21/17 00:00 62 05/20/17 22:00 99.0 80 18 150/70 (96) 98 05/20/17 22:00 73 05/20/17 21:12 05/20/17 21:00 96 21 05/20/17 19:56 80 16 114/57 (76) 97 Room Air 05/20/17 19:19 79 16 115/47 (69) 97 Room Air 05/20/17 19:07 81 18 107/57 (74) 97 Room Air 05/20/17 18:50 86 16 131/61 (84) 96 Room Air 05/20/17 18:31 83 133/60 05/20/17 17:50 86 16 118/57 (77) 98 Room Air 05/20/17 16:50 76 16 119/52 (74) 98 Room Air 05/20/17 16:27 97 21 05/20/17 16:00 16 05/20/17 15:49 80 16 117/56 (76) 98 Room Air 05/20/17 15:32 88 16 130/59 (82) 99 Room Air 05/20/17 15:29 81 142/56 05/20/17 15:29 83 142/56 05/20/17 15:00 98 21 05/20/17 14:30 86 16 119/47 (71) 98 Room Air 05/20/17 12:44 75 154/69 05/20/17 12:21 72 171/84 05/20/17 11:30 30 100 Room Air 05/20/17 11:14 124 30 100 Room Air 05/20/17 11:00 98.3 124 30 199/94 (129) 96 Exam Comments alert, oriented speech fluent with no errors. naming is normal , comprehension normal. CN intact MOTOR 5/5 BUE and BLE Objective Radiology Results MRI brain normal mra brain normal carotid US--no significant stenosis Micro and Labs Laboratory Tests Test 05/20/17 11:17 05/20/17 13:26 05/20/17 23:15 White Blood Count 8.5 Red Blood Count 4.33 Hemoglobin 13.6 Hematocrit 39.9 Mean Corpuscular Volume 92.2 Mean Corpuscular Hemoglobin 31.5 Mean Corpuscular Hemoglobin Concent 34.2 Red Cell Distribution Width 12.0 Platelet Count 241 Mean Platelet Volume 8.7 Neutrophils (%) (Auto) 54.2 Lymphocytes (%) (Auto) 35.1 Monocytes (%) (Auto) 8.6 Eosinophils (%) (Auto) 1.0 Basophils (%) (Auto) 1.1 Neutrophils # (Auto) 4.6 Lymphocytes # (Auto) 3.0 Monocytes # (Auto) 0.7 Eosinophils # (Auto) 0.1 Basophils # (Auto) 0.1 CBC Comment DIFF FINAL Differential Comment Prothrombin Time 10.0 Prothromb Time International Ratio 1.0 Activated Partial Thromboplast Time 25.0 Fibrinogen 306 Blood Urea Nitrogen 15 Creatinine 0.87 Random Glucose 97 Calcium Level 9.1 Sodium Level 133 Potassium Level 4.0 Chloride Level 101 Carbon Dioxide Level 23.1 Anion Gap 9 Estimat Glomerular Filtration Rate 63 Total Creatine Kinase 90 Troponin I LESS THAN 0.02 Triglycerides Level 114 Cholesterol Level 213 LDL Cholesterol 105 HDL Cholesterol 85.0 Cholesterol/HDL Ratio 2.50 Urine Color YELLOW Urine Turbidity CLEAR Urine pH 7.5 Urine Specific [place] 1.015 Urine Protein NEG Urine Glucose (UA) NEG Urine Ketones NEG Urine Occult Blood NEG Urine Nitrite NEG Urine Bilirubin NEG Urine Urobilinogen 0.2 Urine Leukocyte Esterase NEG Urine RBC 0-3 Urine WBC 0-2 Urine Bacteria OCC Urine Oval Fat Bodies Nasal Screen MRSA (PCR) MRSA NOT DETECTED Theodore Spicer MD PhD May 21, 2017 08:41
--- NOTE | 2017-05-21 08:42 | ECHRPT ---
Indication: CVA/TIA CONCLUSIONS Normal left ventricular size. Wall thickness is normal. The left ventricular systolic function is hyperdynamic with an estimated ejection fraction in the ra nge of 65- 70%. The left atrial size is mildly dilated. No atrial level shunt is demonstrated by color flow Doppler interrogation. No mitral valve regurgitation. Moderate mitral annular calcification. Aortic valve sclerosis is present. There is trace tricuspid valve regurgitation. The estimated pulmonary arterial pressure is __ mmHg. The pulmonary valve is not well visualized. BP: 117 / 56 HR: 80 Rhythm: Sinus MEASUREMENTS (Male / Female) Normal Values Technical Quality:Fair 2D ECHO LV Diastolic Diameter PLAX 4.2 cm 4.2 - 5.9 / 3.9 - 5.3 cm LV Systolic Diameter PLAX 3.2 cm IVS Diastolic Thickness 0.8 cm 0.6 - 1.0 / 0.6 - 0.9 cm LVPW Diastolic Thickness 0.8 cm 0.6 - 1.0 / 0.6 - 0.9 cm LV Relative Wall Thickness 0.4 RV Internal Dim ED PLAX 2.7 cm LVOT Diameter 1.7 cm Aortic Root Diameter 2.7 cm LA Systolic Diameter LX 2.5 cm 3.0 - 4.0 / 2.7 - 3.8 cm M-MODE AV Cusp Separation MM 1.8 cm DOPPLER AV Peak Velocity 170.0 cm/s AV Peak Gradient 11.6 mmHg AV Mean Gradient 6.0 mmHg AV Velocity Time Integral 30.5 cm LVOT Peak Velocity 124.0 cm/s LVOT Peak Gradient 6.2 mmHg LVOT Velocity Time Integral 23.1 cm AV Area Cont Eq vti 1.7 cm AV Area Cont Eq pk 1.7 cm Mitral E Point Velocity 105.0 cm/s Mitral A Point Velocity 107.0 cm/s Mitral E to A Ratio 1.0 LV E' Lateral Velocity 8.3 cm/s Mitral E to LV E' Lateral Ratio 12.7 LV E' Septal Velocity 7.3 cm/s Mitral E to LV E' Septal Ratio 14.4 PV Peak Velocity 91.7 cm/s PV Peak Gradient 3.4 mmHg FINDINGS LEFT VENTRICLE Normal left ventricular size. Wall thickness is normal. The left ventricular systolic function is hyperdynamic with an estimated ejection fraction in the ra nge of 65- 70%. RIGHT VENTRICLE Normal right ventricular size and systolic function. LEFT ATRIUM The left atrial size is mildly dilated. RIGHT ATRIUM The right atrial size is normal. ATRIAL SEPTUM No atrial level shunt is demonstrated by color flow Doppler interrogation. AORTA The aortic root and proximal ascending aorta are normal in size on limited imaging. MITRAL VALVE No mitral valve regurgitation. Moderate mitral annular calcification. AORTIC VALVE Aortic valve sclerosis is present. Trileaflet aortic valve. TRICUSPID VALVE There is trace tricuspid valve regurgitation. The estimated pulmonary arterial pressure is __ mmHg. PULMONARY VALVE The pulmonary valve is not well visualized. VESSELS The inferior vena cava is normal in size. PERICARDIUM No pericardial effusion. Christian Cornejo MD (Electronically Signed) Final Date:21 May 2017 08:41
[2017-05-21] MEDS ORDERED: LABETALOL HCL 100 MG/20 ML VIAL IV PUSH PRN (08:45)
[2017-05-21] MEDS: PANTOPRAZOLE SOD 40 MG DELAYED RELEASE TAB PO SCH ×2 (09:00→11:01)
[2017-05-21] MEDS: SODIUM CHLORIDE 0.9% FLUSH 10 ML FLUSH IV FLUSH SCH ×2 (09:00→21:23)
[2017-05-21] MEDS ORDERED: NON-FORMULARY DRUG (Glucosamine-Chondroitin 1 TAB) PO SCH (09:00)
[2017-05-21] MEDS: DOCUSATE SODIUM 50 MG/SENNA 8.6 MG TAB PO SCH ×3 (09:00→21:22)
[2017-05-21] MEDS: FAMOTIDINE 20 MG/2 ML VIAL IV PUSH SCH ×2 (11:02→21:23)
[2017-05-21] MEDS: SODIUM CHLOR 0.9% 1000 ML INJ 1,000 ML IV SCH ×2 (11:11→23:06)
--- NOTE | 2017-05-21 15:18 | RADRPT ---
EXAM DATE/TIME: 05/21/2017 14:34 [facility] COMPARISON: MRI BRAIN W & W/O CONTRAST, May 20, 2017, 13:59. CT BRAIN W/O CONTRAST, May 20, 2017, 11:07. INDICATIONS : 24 hour post TPA. RADIATION DOSE: 56.35 CTDIvol (mGy) MEDICAL HISTORY : Hypertension. SURGICAL HISTORY : Appendectomy. Cholecystectomy. Partial thyroidectomy. ENCOUNTER: Subsequent ACUITY: 1 day PAIN SCALE: 0/10 LOCATION: cranial TECHNIQUE: Multiple contiguous axial images were obtained of the head. Using automated exposure control and adj ustment of the mA and/or kV according to patient size, radiation dose was kept as low as reasonably a chievable to obtain optimal diagnostic quality images. DICOM format image data is available electro nically for review and comparison. FINDINGS: CEREBRUM: There is mild generalized atrophy. Ventricles are normal in size. No evidence of midline shift, mass lesion, hemorrhage or acute infarction. No extra-axial fluid collections are seen. POSTERIOR FOSSA: The cerebellum and brainstem demonstrate no acute finding. The 4th ventricle is midline. The cerebe llopontine angle is unremarkable. EXTRACRANIAL: Visualized sinuses are clear. SKULL: The calvaria is intact. No evidence of skull fracture. CONCLUSION: 1. Stable noncontrast head CT. No acute intracranial abnormality is identified. 2. Stable mild generalized cervical atrophy. Rodger Parekh MD on May 21, 2017 at 15:12 Board Certified Radiologist. This report was verified electronically.
--- NOTE | 2017-05-21 16:27 | HHI.CCPN ---
Subjective Remarks/Hospital Course Hospital Course: 77-year-old female with history of hypertension, hyperlipidemia, presents as a stroke alert. As per patient's , they were getting ready to go the gym, reports that when they arrived at the gym, patient reported that she wanted to go home as she was not feeling well. Patient has been reported that patient was not acting like her normal self, he brought her directly to the emergency room as when she suddenly developed difficulty with language skills, trouble getting words out. She had no focal weakness or numbness. Patient with no recent histories of any surgeries, no history of CVA in the past. Patient is currently not on any blood thinners or aspirin. She was having aphasia in the emergency department and decision was made to administer TPA infusion.. Subjective: 05/21: clinically improving. no aphasia. passed speech eval. PT working with patient. denies complaints. repeat head CT without evidence of hemorrhage. Objective Vital Signs Date Time Temp Pulse Resp B/P (MAP) Pulse Ox O2 Delivery O2 Flow Rate FiO2 05/21/17 08:52 99 21 05/21/17 06:00 62 05/21/17 04:00 98.7 15 112/88 (96) 05/21/17 03:36 Nasal Cannula 2.00 Intake and Output 05/21/17 05/21/17 05/22/17 08:00 16:00 00:00 Output Total 4 ml Balance -4 ml Result Diagram: 05/20/17 1117 05/20/17 1117 Objective Remarks GENERAL: Well-nourished, well-developed patient. SKIN: Warm and dry. HEAD: Normocephalic. EYES: No scleral icterus. No injection or drainage. NECK: Supple, trachea midline. No JVD. CARDIOVASCULAR: Regular rate and rhythm. sinus. RESPIRATORY: equal chest rise. unlabored. GASTROINTESTINAL: Abdomen soft, non-tender, nondistended. MUSCULOSKELETAL: No cyanosis, or edema. NEURO EXAM: GCS 15. neuro intact. no focal deficits. speech and language intact. A/P Assessment and Plan Assessment: 77yF with acute CVA s/p TPA with resolution of symptoms. stable for transfer out of ICU. continue stroke work-up. consult hospitalist. Acute CVA -Status post TPA administration -Aspirin, statins, blood pressure control -Telemetry -2D echo -Further workup per neurologist -PT and OT as tolerated -Swallow eval prior to p.o. Hypertension -Continue metoprolol -Hold Norvasc and lisinopril to allow permissive hypertension -Resume home meds when indicated -SBP goal less than 180 Dyslipidemia -Atorvastatin DVT GI prophylaxis -Evelio's and SCDs -SQH -Pepcid Dispo: transfer out of ICU. consult hospitalist. Celestino Cavanaugh MD May 21, 2017 16:27
[2017-05-21 17:15] LABS: AUTOMATED NEUTROPHIL # 5.1 TH/MM3 (1.8-7.7); BASOPHIL % 0.4 % (0.0-2.0); EOSINOPHIL # 0.1 TH/MM3 (0-0.4); EOSINOPHIL % 1.4 % (0.0-4.0); HEMATOCRIT 37.7 % (35.0-46.0); HEMOGLOBIN 12.8 GM/DL (11.6-15.3); LYMPH % 24.8 % (9.0-44.0); LYMPHOCYTE # 1.9 TH/MM3 (1.0-4.8); MEAN CORPUSCULAR HEMOGLOBIN 31.8 PG (27.0-34.0); MEAN CORPUSCULAR HGB CONC 33.9 % (32.0-36.0); MEAN PLATELET VOLUME 9.5 FL (7.0-11.0); MONO % 7.4 % (0.0-8.0); MONOCYTE # 0.6 TH/MM3 (0-0.9); PLATELET COUNT 205 TH/MM3 (150-450); RED BLOOD COUNT 4.01 MIL/MM3 (4.00-5.30); RED CELL DISTRIBUTION WIDTH 12.8 % (11.6-17.2); WHITE BLOOD COUNT 7.7 TH/MM3 (4.0-11.0)
[2017-05-21 17:29] LABS: INTERNATIONAL NORMALIZED RATIO 1.1 RATIO; PROTHROMBIN TIME - PATIENT 10.7 SEC (9.8-11.6)
[2017-05-21 17:37] LABS: ALBUMIN 3.3 GM/DL (3.4-5.0); AST (GOT) 19 U/L (15-37); BICARBONATE 25.9 MEQ/L (21.0-32.0); BLOOD UREA NITROGEN 9 MG/DL (7-18); CALCIUM 8.5 MG/DL (8.5-10.1); CHLORIDE 109 MEQ/L (98-107); CREATININE 0.86 MG/DL (0.50-1.00); GLOMERULAR FILTRATION RATE 64 ML/MIN (>89); GLUCOSE,RANDOM 121 MG/DL (74-106); MAGNESIUM 1.8 MG/DL (1.5-2.5); SODIUM (NA) 139 MEQ/L (136-145)
[2017-05-21 17:38] LABS: ALT (GPT) 19 U/L (10-53); CHOLESTEROL 196 MG/DL (120-200); TRIGLYCERIDES 126 MG/DL (42-150)
[2017-05-21 17:41] LABS: ALKALINE PHOSPHATASE 60 U/L (45-117); CHOLESTEROL/ HDL RATIO 2.46 RATIO; HDL CHOLESTEROL 79.6 MG/DL (40.0-60.0); LDL CHOLESTEROL 91 MG/DL (0-99); PHOSPHORUS 2.1 MG/DL (2.5-4.9); TOTAL BILIRUBIN ADULT 0.7 MG/DL (0.2-1.0); TOTAL PROTEIN 6.2 GM/DL (6.4-8.2)
[2017-05-21 17:57] LABS: HEMOGLOBIN A1C 5.2 % (4.3-6.0)
[2017-05-21] MEDS: ASPIRIN 325 MG TAB PO SCH (18:47)
[2017-05-21] MEDS ORDERED: NON-FORMULARY DRUG (Omega-3 Fatty Acids (Fish Oil 1000 mg) 1,000 MG) PO SCH (21:00)
[2017-05-21] MEDS: ATORVASTATIN 10 MG TAB PO SCH (21:22)
[2017-05-21] MEDS: METOPROLOL SUCCINATE 50 MG EXTENDED RELEASE TAB PO SCH (21:22)
[2017-05-21] MEDS: MULTIVITAMIN TAB PO SCH (21:23)
[2017-05-21] MEDS ORDERED: HEPARIN SODIUM - SQ 10,000 UNITS/ML VIAL SQ SCH (22:00)
[2017-05-21] MEDS: HEPARIN SODIUM - SQ 10,000 UNITS/ML VIAL SQ SCH (23:52)
[2017-05-22] VITALS (13 sets, daily range): BP systolic 152–191; BP diastolic 65–84; PULSE 64–94; RESP 18–20; TEMP 97.7–98.3; O2SAT 98–99
[2017-05-22] MEDS: CHLORHEXIDINE GLUCONATE 2 % 1 PACK (2 CLOTHS) TOP SCH (03:52)
[2017-05-22] MEDS: RESP: ALBUTEROL 2.5 MG/IPRATROPIUM 0.5 MG NEB (SCH) INH ×4 (04:00→22:00)
[2017-05-22] MEDS: DOCUSATE SODIUM 50 MG/SENNA 8.6 MG TAB PO SCH ×2 (07:53→20:35)
[2017-05-22] MEDS: ASPIRIN 325 MG TAB PO SCH (07:53)
[2017-05-22] MEDS: FAMOTIDINE 20 MG/2 ML VIAL IV PUSH SCH (07:54)
[2017-05-22] MEDS: PANTOPRAZOLE SOD 40 MG DELAYED RELEASE TAB PO SCH (07:54)
[2017-05-22] MEDS: SODIUM CHLORIDE 0.9% FLUSH 10 ML FLUSH IV FLUSH SCH ×2 (07:55→20:35)
[2017-05-22] MEDS: HEPARIN SODIUM - SQ 10,000 UNITS/ML VIAL SQ SCH ×3 (07:55→23:55)
[2017-05-22] MEDS: INSULIN ASPART SUPPLEMENTAL SCALE SQ SCH ×4 (07:55→20:36)
[2017-05-22] MEDS: LISINOPRIL 20 MG TAB PO SCH ×2 (11:26→20:36)
--- NOTE | 2017-05-22 15:22 | HHI.PR ---
Subjective Remarks This is a 77-year-old female with history of hypertension, hyperlipidemia, presented to the ER on 05/20 as a stroke alert. As per patient's , they were getting ready to go the gym, reports that when they arrived at the gym, patient reported that she wanted to go home as she was not feeling well. Patient has been reported that patient was not acting like her normal self, he brought her directly to the emergency room as when she suddenly developed difficulty with language skills, trouble getting words out. She had no focal weakness or numbness. No history of CVA in the past. Patient is currently not on any blood thinners or aspirin. She was having aphasia in the emergency department and decision was made to administer TPA infusion. Patient initially was admitted to the intensive care unit due to TPA transfusion. CT of the head for 2017 did not reveal intracranial hemorrhage. Patient was transferred out of ICU general medicine consulted to assume care. Patient evaluated by physical therapy on patient of [facility] and speech therapy no need for further therapy identified. At this time patient reports feeling well and seems to have no residual effects. Objective Vitals Vital Signs Date Time Temp Pulse Resp B/P (MAP) Pulse Ox O2 Delivery O2 Flow Rate FiO2 05/22/17 12:30 158/67 (97) 05/22/17 11:43 82 05/22/17 11:00 191/84 (119) 05/22/17 08:00 98.2 72 20 179/84 (115) 99 05/22/17 07:45 74 05/22/17 04:58 97.9 67 20 152/70 (97) 98 05/22/17 03:50 64 05/21/17 23:49 99.0 76 16 131/62 (85) 96 05/21/17 21:49 97 05/21/17 21:37 99 Room Air 05/21/17 20:20 98.6 82 18 149/67 (94) 97 05/21/17 18:00 90 05/21/17 16:00 98.1 80 30 130/62 (84) 97 05/21/17 16:00 80 Result Diagram: 05/21/17 1624 05/21/17 1624 Other Results Laboratory Tests Test 05/20/17 11:17 05/20/17 13:26 05/20/17 23:15 05/21/17 16:24 White Blood Count 8.5 TH/MM3 7.7 TH/MM3 Red Blood Count 4.33 MIL/MM3 4.01 MIL/MM3 Hemoglobin 13.6 GM/DL 12.8 GM/DL Hematocrit 39.9 % 37.7 % Mean Corpuscular Volume 92.2 FL 94.0 FL Mean Corpuscular Hemoglobin 31.5 PG 31.8 PG Mean Corpuscular Hemoglobin Concent 34.2 % 33.9 % Red Cell Distribution Width 12.0 % 12.8 % Platelet Count 241 TH/MM3 205 TH/MM3 Mean Platelet Volume 8.7 FL 9.5 FL Neutrophils (%) (Auto) 54.2 % 66.0 % Lymphocytes (%) (Auto) 35.1 % 24.8 % Monocytes (%) (Auto) 8.6 % 7.4 % Eosinophils (%) (Auto) 1.0 % 1.4 % Basophils (%) (Auto) 1.1 % 0.4 % Neutrophils # (Auto) 4.6 TH/MM3 5.1 TH/MM3 Lymphocytes # (Auto) 3.0 TH/MM3 1.9 TH/MM3 Monocytes # (Auto) 0.7 TH/MM3 0.6 TH/MM3 Eosinophils # (Auto) 0.1 TH/MM3 0.1 TH/MM3 Basophils # (Auto) 0.1 TH/MM3 0.0 TH/MM3 CBC Comment DIFF FINAL DIFF FINAL Differential Comment Prothrombin Time 10.0 SEC 10.7 SEC Prothromb Time International Ratio 1.0 RATIO 1.1 RATIO Activated Partial Thromboplast Time 25.0 SEC 25.6 SEC Fibrinogen 306 mg/dL Blood Urea Nitrogen 15 MG/DL 9 MG/DL Creatinine 0.87 MG/DL 0.86 MG/DL Random Glucose 97 MG/DL 121 MG/DL Calcium Level 9.1 MG/DL 8.5 MG/DL Sodium Level 133 MEQ/L 139 MEQ/L Potassium Level 4.0 MEQ/L 3.9 MEQ/L Chloride Level 101 MEQ/L 109 MEQ/L Carbon Dioxide Level 23.1 MEQ/L 25.9 MEQ/L Anion Gap 9 MEQ/L 4 MEQ/L Estimat Glomerular Filtration Rate 63 ML/MIN 64 ML/MIN Total Creatine Kinase 90 U/L Troponin I LESS THAN 0.02 NG/ML Triglycerides Level 114 MG/DL 126 MG/DL Cholesterol Level 213 MG/DL 196 MG/DL LDL Cholesterol 105 MG/DL 91 MG/DL HDL Cholesterol 85.0 MG/DL 79.6 MG/DL Cholesterol/HDL Ratio 2.50 RATIO 2.46 RATIO Urine Color YELLOW Urine Turbidity CLEAR Urine pH 7.5 Urine Specific [place] 1.015 Urine Protein NEG mg/dL Urine Glucose (UA) NEG mg/dL Urine Ketones NEG mg/dL Urine Occult Blood NEG Urine Nitrite NEG Urine Bilirubin NEG Urine Urobilinogen 0.2 MG/DL Urine Leukocyte Esterase NEG Urine RBC 0-3 /hpf Urine WBC 0-2 /hpf Urine Bacteria OCC /hpf Urine Oval Fat Bodies Nasal Screen MRSA (PCR) MRSA NOT DETECTED Total Protein 6.2 GM/DL Albumin 3.3 GM/DL Phosphorus Level 2.1 MG/DL Magnesium Level 1.8 MG/DL Alkaline Phosphatase 60 U/L Aspartate Amino Transf (AST/SGOT) 19 U/L Alanine Aminotransferase (ALT/SGPT) 19 U/L Total Bilirubin 0.7 MG/DL Hemoglobin A1c 5.2 % Imaging Last Impressions Head CT 05/21/17 1230 Signed Impressions: Service Date/Time: Sunday, May 21, 2017 14:34 - CONCLUSION: 1. Stable noncontrast head CT. No acute intracranial abnormality is identified. 2. Stable mild generalized cervical atrophy. Rodger Parekh MD Head Magnetic Resonance Angiography 05/20/17 0000 Signed Impressions: Service Date/Time: Saturday, May 20, 2017 13:59 - CONCLUSION: 1. Unremarkable MRA examination of the [place]. Specifically, no evidence for significant intracranial stenosis or large vessel occlusion. Kuldeep Garcia MD Chest X-Ray 05/20/17 0000 Signed Impressions: Service Date/Time: Saturday, May 20, 2017 11:44 - CONCLUSION: Mild complete cardiomegaly otherwise negative Axel An MD FACR Carotid Artery Ultrasound 05/20/17 0000 Signed Impressions: Service Date/Time: Saturday, May 20, 2017 12:45 - CONCLUSION: 1. Mild carotid plaque without significant flow-limiting stenosis. 2. Antegrade vertebral artery flow bilaterally. Kuldeep Garcia MD Brain MRI 05/20/17 0000 Signed Impressions: Service Date/Time: Saturday, May 20, 2017 13:59 - CONCLUSION: Minimal nonspecific periventricular matter changes. No restricted diffusion to suggest acute infarct No parenchymal hemorrhage. Axel An MD FACR Objective Remarks GENERAL: This is a well-nourished, well-developed patient, in no apparent distress. CARDIOVASCULAR: Regular rate and rhythm RESPIRATORY: Clear to auscultation. Breath sounds equal bilaterally. GASTROINTESTINAL: Abdomen soft, non-tender, nondistended. Normal active bowel sounds MUSCULOSKELETAL: Extremities without clubbing, cyanosis, or edema. NEURO: Alert & Oriented. No focal deficits noted. Moves all ext x4 A/P Problem List: (1) CVA (cerebral vascular accident) ICD Codes: I63.9 - Cerebral infarction, unspecified Status: Acute Plan: Assessment: 77yF with acute CVA s/p TPA with resolution of symptoms which included aphagia in ER. Transferred out of ICU Acute CVA -Status post TPA administration -Aspirin, statins, blood pressure control -Telemetry reveals NSR -2D echo pending -Patient has been evaluated by PT, OT and Speech. No further therapy recommended by PT, OT or speech therapy. -CT of the head ( 05/21) reviewed and reveals stable noncontrast head CT. No acute echocardiogram, reality is identified. Stable mild generalized cervical atrophy. - Brain MRI reviewed and reveals minimal nonspecific periventricular matter changes. No restricted diffusion to suggest acute infarct no parenchymal hemorrhage. - Ultrasound bilateral carotid arteries reviewed and reveals mild carotid plaque without significant flow limiting stenosis. Antegrade vertebral artery flow bilaterally. - CT of the head (05/20) no acute intracranial abnormality - Head MRA reviewed unremarkable MRA examination of the [place]. Specifically, no evidence for significant intracranial stenosis or large vessel occlusion Hypertension -Resume metoprolol 50 mg PO BID and lisinopril 10 mg PO BID - DC amlodipine - add Procardia XL 30 mg PO daily to start now -monitor BP trend Dyslipidemia -Atorvastatin DVT GI prophylaxis -Evelio's and SCDs -Pepcid (2) HTN (hypertension) ICD Codes: I10 - Essential (primary) hypertension Assessment and Plan Patient examined. Assessment and plan formulated with Kalee Stone PA-C. I agree with the above. Problem Qualifiers (1) CVA (cerebral vascular accident): Qualified Codes: I63.9 - Cerebral infarction, unspecified Kalee Stone May 22, 2017 15:22 Yusuf Car DO May 24, 2017 23:35
[2017-05-22] MEDS ORDERED: NIFEdipine 30 MG SUSTAINED RELEASE TAB PO SCH (16:45)
[2017-05-22] MEDS: MULTIVITAMIN TAB PO SCH (20:35)
[2017-05-22] MEDS: METOPROLOL SUCCINATE 50 MG EXTENDED RELEASE TAB PO SCH (20:35)
[2017-05-22] MEDS: FAMOTIDINE 20 MG TAB PO SCH (20:36)
[2017-05-22] MEDS: ATORVASTATIN 10 MG TAB PO SCH (20:36)
[2017-05-22] MEDS ORDERED: amLODIPine BESYLATE 5 MG TAB PO SCH (21:00)
[2017-05-23] VITALS (8 sets, daily range): BP systolic 127–174; BP diastolic 62–72; PULSE 64–94; RESP 18–20; TEMP 98–98.5; O2SAT 97–98
[2017-05-23] MEDS: CHLORHEXIDINE GLUCONATE 2 % 1 PACK (2 CLOTHS) TOP SCH (03:16)
[2017-05-23] MEDS: RESP: ALBUTEROL 2.5 MG/IPRATROPIUM 0.5 MG NEB (SCH) INH ×3 (03:24→16:00)
[2017-05-23] MEDS: INSULIN ASPART SUPPLEMENTAL SCALE SQ SCH (08:00)
[2017-05-23] MEDS ORDERED: LIPI10TA PO (08:31)
[2017-05-23] MEDS ORDERED: NIFE30TA8 PO (08:31)
[2017-05-23] MEDS ORDERED: ASPI81TA23 PO (08:31)
--- NOTE | 2017-05-23 08:33 | HHI.DCPOC ---
Discharge Care Plan Diagnosis: (1) CVA (cerebral vascular accident) (2) HTN (hypertension) Goals to Promote Your Health * To prevent worsening of your condition and complications * To maintain your health at the optimal level Directions to Meet Your Goals Take your medications as prescribed Follow your dietary instruction Follow activity as directed Keep your appointments as scheduled Take your immunizations and boosters as scheduled If your symptoms worsen call your PCP, if no PCP go to Urgent Care Center or Emergency Room Smoking is Dangerous to Your Health. Avoid second hand smoke Call the 24-hour hour crisis hotline for domestic abuse at Kalee Stone May 23, 2017 08:32
--- NOTE | 2017-05-23 08:38 | HHI.DS ---
Discharge Summary Admission Date May 20, 2017 at 12:41 Discharge Date: May 24, 2017 Admitting Diagnosis CVA (1) CVA (cerebral vascular accident) Diagnosis: Principal ICD Codes: I63.9 - Cerebral infarction, unspecified Status: Acute (2) HTN (hypertension) Diagnosis: Secondary ICD Codes: I10 - Essential (primary) hypertension Consultants Dr. Spicer, neurology Dr. Machuca, ICU Procedures TPA infusion 05/20/17 Brief History 77-year-old female with history of hypertension, hyperlipidemia, presents as a stroke alert. As per patient's , they were getting ready to go the gym, reports that when they arrived at the gym, patient reported that she wanted to go home as she was not feeling well. Patient has been reported that patient was not acting like her normal self, he brought her directly to the emergency room as when she suddenly developed difficulty with language skills, trouble getting words out. She had no focal weakness or numbness. Patient with no recent histories of any surgeries, no history of CVA in the past. Patient is currently not on any blood thinners or aspirin. She was having aphasia in the emergency department and decision was made to administer TPA infusion.. CBC/BMP: 05/21/17 1624 05/21/17 1624 Significant Findings Laboratory Tests Test 05/20/17 11:17 05/20/17 13:26 05/20/17 23:15 05/21/17 16:24 Monocytes (%) (Auto) 8.6 % (0.0-8.0) Sodium Level 133 MEQ/L (136-145) Estimat Glomerular Filtration Rate 63 ML/MIN (>89) 64 ML/MIN (>89) Troponin I LESS THAN 0.02 NG/ML Cholesterol Level 213 MG/DL (120-200) LDL Cholesterol 105 MG/DL (0-99) HDL Cholesterol 85.0 MG/DL (40.0-60.0) 79.6 MG/DL (40.0-60.0) Urine Bacteria OCC /hpf (NONE) Random Glucose 121 MG/DL (74-106) Total Protein 6.2 GM/DL (6.4-8.2) Albumin 3.3 GM/DL (3.4-5.0) Phosphorus Level 2.1 MG/DL (2.5-4.9) Chloride Level 109 MEQ/L (98-107) Anion Gap 4 MEQ/L (5-15) Test 05/22/17 20:04 05/23/17 07:54 Imaging Last Impressions Head CT 05/21/17 1230 Signed Impressions: Service Date/Time: Sunday, May 21, 2017 14:34 - CONCLUSION: 1. Stable noncontrast head CT. No acute intracranial abnormality is identified. 2. Stable mild generalized cervical atrophy. Rodger Parekh MD Head Magnetic Resonance Angiography 05/20/17 0000 Signed Impressions: Service Date/Time: Saturday, May 20, 2017 13:59 - CONCLUSION: 1. Unremarkable MRA examination of the [place]. Specifically, no evidence for significant intracranial stenosis or large vessel occlusion. Kuldeep Garcia MD Chest X-Ray 05/20/17 0000 Signed Impressions: Service Date/Time: Saturday, May 20, 2017 11:44 - CONCLUSION: Mild complete cardiomegaly otherwise negative Axel An MD FACR Carotid Artery Ultrasound 05/20/17 0000 Signed Impressions: Service Date/Time: Saturday, May 20, 2017 12:45 - CONCLUSION: 1. Mild carotid plaque without significant flow-limiting stenosis. 2. Antegrade vertebral artery flow bilaterally. Kuldeep Garcia MD Brain MRI 05/20/17 0000 Signed Impressions: Service Date/Time: Saturday, May 20, 2017 13:59 - CONCLUSION: Minimal nonspecific periventricular matter changes. No restricted diffusion to suggest acute infarct No parenchymal hemorrhage. Axel An MD FACR PE at Discharge GENERAL: This is a well-nourished, well-developed patient, in no apparent distress. CARDIOVASCULAR: Regular rate and rhythm RESPIRATORY: Clear to auscultation. Breath sounds equal bilaterally. GASTROINTESTINAL: Abdomen soft, non-tender, nondistended. Normal active bowel sounds MUSCULOSKELETAL: Extremities without clubbing, cyanosis, or edema. NEURO: Alert & Oriented. No focal deficits noted. Moves all ext x4 Hospital Course Assessment: 77yF with acute CVA s/p TPA with resolution of symptoms which included aphagia in ER. Transferred out of ICU Acute CVA -Status post TPA administration -Aspirin, statins, blood pressure control -Telemetry reveals NSR -2D echo: Normal left ventricular size. Wall thickness is normal. The left ventricular systolic function is hyperdynamic with an estimated ejection fraction in the range of 65-70%. The left atrial size is mildly dilated. No atrial level shunt is demonstrated by color flow Doppler interrogation. No mitral valve regurgitation. Moderate mitral annular calcification. Aortic valve sclerosis is present. There is trace tricuspid valve regurgitation. The pulmonary valve is not well visualized. -Patient has been evaluated by PT, OT and Speech. No further therapy recommended by PT, OT or speech therapy. -CT of the head ( 05/21) reviewed and reveals stable noncontrast head CT. No acute echocardiogram, reality is identified. Stable mild generalized cervical atrophy. - Brain MRI reviewed and reveals minimal nonspecific periventricular matter changes. No restricted diffusion to suggest acute infarct no parenchymal hemorrhage. - Ultrasound bilateral carotid arteries reviewed and reveals mild carotid plaque without significant flow limiting stenosis. Antegrade vertebral artery flow bilaterally. - CT of the head (05/20) no acute intracranial abnormality - Head MRA reviewed unremarkable MRA examination of the [place]. Specifically, no evidence for significant intracranial stenosis or large vessel occlusion Hypertension -Resume metoprolol 50 mg PO BID and lisinopril 10 mg PO BID - DC amlodipine - add Procardia XL 30 mg PO BID -monitor BP trend Dyslipidemia -Atorvastatin DVT GI prophylaxis -Evelio's and SCDs -Pepcid Pt Condition on Discharge: Stable Discharge Disposition: Discharge Home Discharge Instructions DIET: Follow Instructions for: Heart Healthy Diet Activities you can perform: Regular-No Restrictions Follow up Referrals: Neurology - 3 Weeks with Theodore Spiecr MD PhD PCP Follow-up - [address] Orantes New Medications: Aspirin (Px Aspirin) 325 Mg Tab 325 MG PO DAILY for Blood Clot Prevention, #30 TAB 0 Refills Atorvastatin (Lipitor) 10 Mg Tab 10 MG PO HS for Cholesterol Management, #30 TAB 0 Refills Nifedipine ER 24 HR (Nifedipine ER 24 HR) 30 Mg Tab 30 MG PO BID for blood pressure, #60 TAB 0 Refills Continued Medications: Glucosamine-Chondroitin (Glucosamine-Chondroitin) 500-400 Mg Tab 1 TAB PO DAILY for Herbal Supplements, TAB 0 Refills Lactobacillus Acidophilus (Probiotic) 10 Billion Cell Cap 1 CAP PO DAILY for Nutritional Supplement, #90 CAP 0 Refills Lisinopril (Lisinopril) 20 Mg Tab 20 MG PO BID, #30 TAB 0 Refills Metoprolol Succinate ER 24 HR (Metoprolol Succinate ER 24 HR) 50 Mg Tab 50 MG PO HS, #30 TAB 0 Refills Multiple Vitamin (Multivitamins) 1 Cap Cap 1 CAP PO HS [place]-3 Fatty Acids (Fish Oil 1000 mg) 300 Mg-1,000 Mg Cap 1000 MG PO HS Discontinued Medications: Amlodipine (Amlodipine) 5 Mg Tab 5 MG PO HS for Blood Pressure Management, #30 TAB 0 Refills Additional Information Patient examined. Assessment and plan formulated with Kalee Stone PA-C. I agree with the above. Kalee Stone May 23, 2017 08:38 Yusuf Car DO May 24, 2017 23:36
[2017-05-23] MEDS: DOCUSATE SODIUM 50 MG/SENNA 8.6 MG TAB PO SCH ×2 (09:47→20:39)
[2017-05-23] MEDS: ASPIRIN 325 MG TAB PO SCH (09:47)
[2017-05-23] MEDS: PANTOPRAZOLE SOD 40 MG DELAYED RELEASE TAB PO SCH (09:48)
[2017-05-23] MEDS: LISINOPRIL 20 MG TAB PO SCH ×2 (09:48→20:38)
[2017-05-23] MEDS: HEPARIN SODIUM - SQ 10,000 UNITS/ML VIAL SQ SCH ×2 (09:48→16:20)
[2017-05-23] MEDS: FAMOTIDINE 20 MG TAB PO SCH ×2 (09:48→20:39)
[2017-05-23] MEDS: NIFEdipine 30 MG SUSTAINED RELEASE TAB PO SCH ×2 (09:55→20:39)
--- NOTE | 2017-05-23 14:09 | HHI.FF ---
Face to Face Verification Diagnosis: (1) CVA (cerebral vascular accident) (2) HTN (hypertension) Home Health Nursing Order: Medical education Signs/symptoms of disease process Medication education-adverse effect Nursing assessment with vital signs I have seen patient Ai Huynh on 05/23/17. My clinical findings support the need for the requested home health care services because: Deconditioned w/ increased weakness Limited ability to care for self I certify that my clinical findings support that this patient is homebound because: Impaired cognitive ability/safety Kalee Stone May 23, 2017 14:09 Yusuf Car DO May 24, 2017 09:40
[2017-05-23] MEDS ORDERED: ASA325 PO (14:14)
--- NOTE | 2017-05-23 19:38 | HHI.PR ---
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 Plan continue aspirin ok from neurology standpoint to dc tomorrow follow up with me in 2-3 weeks Please schedule outpatient cardiology appointment to evaluate for loop recorder to r/o afib Diagnosis/Plan: Subjective Subjective Comments No acute events reported Active Medications Current Medications Medications (Trade) Dose Ordered Sig/Jennifer Route Start Time Stop Time Status Last Admin ([place] 5-325 Mg) 1 tab Q4H PRN PO 05/20/17 12:45 05/21/17 18:47 (Morphine Inj) 2 mg Q2H PRN IV PUSH 05/20/17 13:00 (Protonix) 40 mg DAILY PO 05/21/17 09:00 05/23/17 09:48 (Trandate Inj) 10 mg Q1HR PRN IV PUSH 05/20/17 13:00 (Lipitor) 10 mg HS PO 05/20/17 21:00 05/22/17 20:36 (NovoLOG SUPPLEMENTAL SCALE) 1 ACHS SQ 05/20/17 17:00 (D50w (Vial) Inj) 50 ml UNSCH PRN IV PUSH 05/20/17 13:00 (Glucagon Inj) 1 mg UNSCH PRN OTHER 05/20/17 13:00 (Vasotec Inj) 1.25 mg Q6H PRN IV PUSH 05/20/17 13:00 05/22/17 10:25 Nicardipine HCl 25 mg/Sodium Chloride 250 ml @ 50 mls/hr TITRATE PRN IV 05/20/17 13:00 05/20/17 18:31 (Toprol Xl) 50 mg HS PO 05/21/17 21:00 05/22/17 20:35 (Theragran) 1 tab HS PO 05/21/17 21:00 05/22/17 20:35 (NS Flush) 2 ml UNSCH PRN IV FLUSH 05/20/17 23:30 (NS Flush) 2 ml BID IV FLUSH 05/21/17 09:00 05/22/17 20:35 (Tylenol) 650 mg Q6H PRN PO 05/20/17 23:30 05/20/17 23:30 (Zofran Inj) 4 mg Q6H PRN IV PUSH 05/20/17 23:30 (Heparin Inj) 5,000 units Q8H SQ 05/22/17 00:00 05/23/17 16:20 Miscellaneous Information 1 Q361D XX 05/20/17 23:30 (Chlorhexidine 2% Cloth) 3 pack Taper DAILY@04 TOP 05/21/17 04:00 05/17/18 03:59 (Chlorhexidine 2% Cloth) 3 pack UNSCH PRN TOP 05/20/17 23:30 (Norma-Colace) 1 tab BID PO 05/21/17 09:00 05/23/17 09:47 (Milk Of Magnesia Liq) 30 ml Q12H PRN PO 05/20/17 23:30 (Senokot) 17.2 mg Q12H PRN PO 05/20/17 23:30 (Dulcolax Supp) 10 mg DAILY PRN RECTAL 05/20/17 23:30 (Lactulose Liq) 30 ml DAILY PRN PO 05/20/17 23:30 (Trandate Inj) 5 mg Q20M PRN IV PUSH 05/21/17 08:45 (Aspirin) 325 mg DAILY PO 05/21/17 16:30 05/23/17 09:47 (Prinivil) 20 mg BID PO 05/22/17 11:15 05/23/17 09:48 (Pepcid) 20 mg BID PO 05/22/17 21:00 05/23/17 09:48 (Procardia Xl) 30 mg BID PO 05/23/17 09:00 05/23/17 09:55 Allergies Allergies Coded Allergies No Known Allergies (Verified Allergy, Unknown, 05/20/17) Exam I&O / VS Vital Signs Date Time Temp Pulse Resp B/P (MAP) Pulse Ox O2 Delivery O2 Flow Rate FiO2 05/23/17 12:54 98.5 79 20 148/70 (96) 98 05/23/17 12:00 75 05/23/17 09:55 154/68 (96) 174/70 (104) 05/23/17 09:42 97 21 05/23/17 08:54 98.1 66 19 163/70 (101) 98 05/23/17 07:30 64 05/23/17 04:58 98.2 94 18 150/72 (98) 98 05/22/17 23:56 98 Room Air 05/22/17 23:53 98.3 94 18 162/84 (110) 98 05/22/17 23:04 73 05/22/17 22:15 189/65 (106) 05/22/17 22:02 21 05/22/17 20:00 97.7 78 20 175/82 (113) 98 Exam Comments alert, oriented speech fluent with no errors. naming is normal , comprehension normal. CN intact MOTOR 5/5 BUE and BLE Objective Micro and Labs Laboratory Tests Test 05/22/17 20:04 05/23/17 07:54 Erythrocyte Sedimentation Rate 8 Lactic Acid Level 0.6 Theodore Spicer MD PhD May 23, 2017 19:38
[2017-05-23] MEDS: METOPROLOL SUCCINATE 50 MG EXTENDED RELEASE TAB PO SCH (20:35)
[2017-05-23] MEDS: ATORVASTATIN 10 MG TAB PO SCH (20:38)
[2017-05-23] MEDS: MULTIVITAMIN TAB PO SCH (20:39)
[2017-05-23] MEDS: SODIUM CHLORIDE 0.9% FLUSH 10 ML FLUSH IV FLUSH SCH (20:40)
[2017-05-24] VITALS: BP 122/71; PULSE 82; RESP 18; TEMP 97.2; O2SAT 95
[2017-05-24] MEDS: HEPARIN SODIUM - SQ 10,000 UNITS/ML VIAL SQ SCH (00:41)
[2017-05-24 04:00] VITALS: BP 132/61; PULSE 70; RESP 18; TEMP 97.8; O2SAT 97
[2017-05-24] MEDS: CHLORHEXIDINE GLUCONATE 2 % 1 PACK (2 CLOTHS) TOP SCH (04:00)
[2017-05-24 07:49] VITALS: BP 153/68; PULSE 70; RESP 19; TEMP 97; O2SAT 97
[2017-05-24] MEDS: FAMOTIDINE 20 MG TAB PO SCH (08:29)
[2017-05-24] MEDS: ASPIRIN 325 MG TAB PO SCH (08:29)
[2017-05-24] MEDS: PANTOPRAZOLE SOD 40 MG DELAYED RELEASE TAB PO SCH (08:29)
[2017-05-24] MEDS: LISINOPRIL 20 MG TAB PO SCH (08:30)
[2017-05-24] MEDS: NIFEdipine 30 MG SUSTAINED RELEASE TAB PO SCH (08:30)
== END 2017-05-24 11:13 | disposition home health service (06) | DRG 63 ==
LOC: PHED 10:59 → PHEDA 12:41 → N03A 22:21 → N05A 05-21 19:51
PROVIDERS: ADMIT Hospitalist; ATTEND Hospitalist
DX: I63.9 Cerebral infarction, unspecified (principal); R47.01 Aphasia; I35.8 Other nonrheumatic aortic valve disorders; I10 Essential (primary) hypertension; E78.5 Hyperlipidemia, unspecified; M19.90 Unspecified osteoarthritis, unspecified site; R29.704 NIHSS score 4; R48.8 Other symbolic dysfunctions; M47.812 Spondylosis without myelopathy or radiculopathy, cervical region; Z87.891 Personal history of nicotine dependence
CPT/HCPCS: 70450; 70544; 70553; 71045; 80048; 80053; 80061; 81001; 82550; 82948; 83036; 83605; 83735; 84100; 84484; 85025; 85384; 85610; 85652; 85730; 86850; 86900; 86901; 87641; 93005; 93306; 93880; 94150; 94640; 94664; 96365; 96368; 96375; A9579; J1644; J2997; J7030; J7050